=== PATIENT | male | born 1965 | race Caucasian/White ===

== ENCOUNTER 2017-11-07 00:40 | Outpatient (CLI) | payer BC, SELFPAY ==
--- NOTE | 2017-11-07 07:27 | DI.US_ITS ---
SYMPTOM/DIAGNOSIS: LT TESTICLE PAIN THAT RADIATES UP TO LEFT PELVIS N50.812 TESTICULAR ULTRASOUND: The testicles are normal in size and echogenicity and show normal blood flow. There is no evidence of mass or torsion. The epididymides show normal blood flow. There are bilateral epididymal head cysts. The largest on the right measures 11 mm. The largest on the left measures 14 mm. There is no evidence of hydrocele or varicocele. IMPRESSION: Bilateral epididymal head cysts, left greater than right.
== END 2017-11-07 01:00 ==
PROVIDERS: PCP Emergency Medicine; Visit Provider Nurse Practitioner Gerontology
DX: N50.812 Left testicular pain (principal); N50.3 Cyst of epididymis
CPT/HCPCS: 76870

== ENCOUNTER 2018-04-02 18:21 | Emergency (ER) | payer BC, SELFPAY ==
[2018-04-02 18:51] VITALS: BP 116/72; PULSE 98; RESP 18; TEMP 37.5; O2SAT 94
[2018-04-02] MEDS: Naproxen 250 MG TAB 500 MG PO (19:10)
--- NOTE | 2018-04-02 20:03 | W.ED.GENAD ---
Discharge Plan Disposition Patient Disposition: HOME Condition: Good Discharge Details Chief Complaint: RespSymp Clinical Impression: Influenza A, Strep pharyngitis Reason For Visit: ? flu Primary Care Provider: Ajith Baer ED Provider: Edenilson Julian Home Meds and New Rx's Prescriptions: New amoxicillin 500 mg capsule 500 mg PO QID 7 Days Qty: 28 RF: 0 No Action naproxen sodium [Aleve] 220 MG tablet 220 mg PO daily prn RF: 0 magnesium oxide 400 MG tablet 400 mg PO HS RF: 0 Discharge Instructions Instructions: Pharyngitis (ED), Influenza (ED) Additional Instructions: Please take the antibiotic as directed. Please eat yogurts and high-fiber foods to avoid any diarrhea. Please continue to take Tylenol and Motrin for any fever or aches. If you notice any worsening of your symptoms, or any new symptoms such as vomiting, diarrhea, fever, chills, shortness of breath, chest pain, numbness, weakness, or fainting , please return immediately to the emergency department for reevaluation. Please follow up with your primary care provider as soon as possible for reassessment and reevaluation. As always, it was a pleasure participating in your medical care today. Referrals: Ajith Baer, [Primary Care Provider] - Medical Decision Making This is a very pleasant 52-year-old male who presents with signs and symptoms concerning for an flu. The patient has had mild fever, sore throat, myalgias, and mild headache for the last 3 days. He has not been eating but has been drinking. His pain is slightly improved with Tylenol and Motrin. Physical exam demonstrates no concerning red flags of severe neck pain or stiffness, no signs of meningitis. Lungs are clear, vital signs are reassuring. Mild erythema the posterior oropharynx. Strep test is positive for evidence of strep, and influenza is also positive. With the patient's 3 days of symptoms that he is not a candidate for Tamiflu. We will give amoxicillin, the first dose here, for his strep. Recommend continued fluids, Tylenol, Motrin, and prompt return for worsening of his symptoms. I have extensively reviewed the treatment plan and discharge instructions with the patient and their family. I have addressed all patient concerns at this time. The patient and family was made aware of what symptoms to monitor for that would warrant a return to the emergency department. Discussed the plan with the patient and family, they demonstrate verbal understanding and agreement with our assessment and plan at this time. HPI General Date/Time Provider Initiated Documentation: 04/02/18 19:03. HPI Narrative: This is a pleasant 52-year-old male with no significant past medical history who presents today for evaluation of malaise. The patient states that for the last 3 days he has had a fever with a T-max of 103, and flulike symptoms of sore throat, headache, myalgias, notable fatigue. He has not been eating but he has been drinking regularly. He denies any abdominal pain, chest pain, or significant shortness of breath. He does admit to mild cough that is nonproductive. He denies any hemoptysis, hematemesis, diarrhea or recent antibiotic use. 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 He denies any other complaints at this time. He has not gotten his flu shot. He denies any IV or illicit drug use, pertinent family history recent surgeries. Related Data Home Medications Medication Instructions Recorded Confirmed naproxen sodium [Aleve] 220 mg PO daily prn 07/11/14 04/02/18 magnesium oxide 400 mg PO HS 08/24/16 04/02/18 amoxicillin 500 mg PO QID 7 Days #28 cap 04/02/18 Previous Rx's Medication Instructions Recorded amoxicillin 500 mg PO QID 7 Days #28 cap 04/02/18 Allergies Allergy/AdvReac Type Severity Reaction Status Date / Time ibuprofen Allergy Intermediate itchy,hives Verified 11/08/17 09:10 latex Allergy Intermediate itching/bum Verified 11/08/17 09:10 ps General Stated Complaint: RespSymp GULSHAN: 3 Review of Systems Review of Systems All systems reviewed & are unremarkable except as noted in HPI and below PFSH Social History Smoking/Tobacco Use Status: Never Exam Narrative Exam Narrative: 1.Const: Well-nourished, Well-developed, appearing stated age 2.Eyes: PERRL, no conjunctival injection, and symmetrical lids. 3.ENT: Atraumatic external nose and ears. Moist MM. Neck: Symmetric, trachea midline, No thyromegaly. Patient demonstrates good movement of cervical neck. There is no nuchal rigidity, no nuchal tenderness. Patient is able to flex the neck without any difficulty or significant pain. Negative Kernig's and Brudzinski sign. Mild erythema in the posterior oropharynx. No significant tonsillar exudates or tonsillar enlargement. No evidence of otitis media or externa. 4.CVS: +S1/S2, No murmurs or gallops. Peripheral pulses 2+ and equal in all extremities. Brisk capillary refill in all extremities. 5.RESP: Unlabored respiratory effort. Clear to auscultation bilaterally. No wheezes rales or rhonchi 6.GI: Soft, Nontender/Nondistended, No hepatosplenomegaly. No guarding or rebound. 7.MSK: Normocephalic/Atraumatic, Extremities w/o deformity or ttp No cyanosis or clubbing, Normal movement of all extremities 8.Skin: Warm, Dry. No rashes or lesions. 9.Neuro: flaking roll operator II-XII grossly intact. Sensation grossly intact, no focal neurologic deficits. 10.Psych: (AAO) x3. Appropriate mood and affect Course Vital Signs Temperature 37.5 C 04/02/18 18:51 Pulse 98 H 04/02/18 18:51 Respiratory Rate 18 04/02/18 18:51 Blood Pressure 116/72 04/02/18 18:51 Pulse Oximetry 94 L 04/02/18 18:51 Temperature 37.5 C 04/02/18 18:51 Temperature Source Temporal Artery Scan 04/02/18 18:51 Pulse 98 H 04/02/18 18:51 Respiratory Rate 18 04/02/18 18:51 Respiratory Effort 04/02/18 18:54 Blood Pressure 116/72 04/02/18 18:51 Blood Pressure Position Sitting 04/02/18 18:51 Pulse Oximetry 94 L 04/02/18 18:51 Oxygen Delivery Method Room Air 04/02/18 18:51 Oxygen Flow Rate 0 04/02/18 18:51 Pain Level 8 04/02/18 19:10 Lab/Test Results Lab/Test Results: 04/02/18 19:10 Nasopharynx Influenza Types A,B Antigen - Final POC Strep Test-JENNIFER(Rapid) Start: 04/02/18 19:03 Freq: .Rapid Strep Test Status: Active Protocol: Document 04/02/18 19:55 (Rec: 04/02/18 19:55 [email or web address]) Strep test-JENNIFER(Rapid)-POC POC-Strep test-JENNIFER (Rapid) Positive POC-Strep test-JENNIFER (Rapid) Positive
[2018-04-02] MEDS: Amoxicillin 500 MG CAP (20:10)
== END 2018-04-02 20:13 | disposition home or self-care (01) ==
PROVIDERS: Emergency Provider Student in an Organized Health Care Education/Training Program; PCP Emergency Medicine
DX: J10.1 Influenza due to other identified influenza virus with other respiratory manifestations (principal); J02.0 Streptococcal pharyngitis
CPT/HCPCS: 87449; 87880; 99283

== ENCOUNTER 2018-07-30 14:00 | Emergency (ER) | payer BC, SELFPAY ==
[2018-07-30 14:12] VITALS: BP 131/81; PULSE 64; RESP 20; TEMP 36.9; O2SAT 98
--- NOTE | 2018-07-30 14:30 | W.ED.GENAD ---
Discharge Plan Disposition Patient Disposition: HOME Condition: Good Discharge Details Chief Complaint: RashLesion Clinical Impression: Insect bite Primary Care Provider: Ajith Baer ED Provider: Edenilson Julian Home Meds and New Rx's Prescriptions: No Action naproxen sodium [Aleve] 220 MG tablet 220 mg PO daily prn RF: 0 magnesium oxide 400 MG tablet 400 mg PO HS RF: 0 Discharge Instructions Instructions: Insect Bite or Sting (ED) Additional Instructions: Your lesion does not appear typical of a tick bite. However you were in an endemic area, and since you had multiple ticks on your recently there is concern that certainly may be a tick bite component. If you so choose to, please take the doxycycline 1 time as directed. Roughly 4 to 6 hours later please take some yogurt to prevent any diarrhea. If you notice any worsening of your symptoms, or any new symptoms such as vomiting, diarrhea, fever, chills, shortness of breath, chest pain, numbness, weakness, or fainting , please return immediately to the emergency department for reevaluation. Please follow up with your primary care provider as soon as possible for reassessment and reevaluation. As always, it was a pleasure participating in your medical care today. Referrals: Ajith Baer, [Primary Care Provider] - Medical Decision Making This is a pleasant 53-year-old male who presents with concern for a lesion behind his right posterior ear. Exam demonstrates a small erythematous lesion. No evidence of abscess. No evidence of erythema migrans. It may have been from a tick, or another arthropod bite. Patient does have mitral valve regurgitation. We discussed risks and benefits of prophylactic doxycycline for potential tick bite as he does have multiple risk factors of being covered and takes recently through his outdoor escapades. Patient will be given 200 mg of doxycycline to take at home when he has eaten some food. We discussed the importance of yogurt with live culture a few hours afterwards to prevent any diarrhea. Patient has no other complaints at this time. Discussed red flags which to return. I have extensively reviewed the treatment plan and discharge instructions with the patient. I have addressed all patient concerns at this time. The patient was made aware of what symptoms to monitor for that would warrant a return to the emergency department. Discussed the plan with the patient, they demonstrate verbal understanding and agreement with our assessment and plan at this time. HPI General Date/Time Provider Initiated Documentation: 07/30/18 14:07. HPI Narrative: This is a 53-year-old male with a past medical history of mitral valve regurgitation, and no other significant medical problem who presents today for evaluation of a bite behind his right ear. [place], has noticed multiple ticks that he is pulled off of them. He does not recall pulling any takeoff of his right posterior ear, however he did note a lesion in his right posterior ear, and his was concerned that it may have been a tick bite. He denies any systemic symptoms of fever, chills, arthralgias, or other complaints. He denies any other modifying factors. Related Data Home Medications Medication Instructions Recorded Confirmed naproxen sodium [Aleve] 220 mg PO daily prn 07/11/14 07/30/18 magnesium oxide 400 mg PO HS 08/24/16 07/30/18 Allergies Allergy/AdvReac Type Severity Reaction Status Date / Time ibuprofen Allergy Intermediate itchy,hives Verified 07/30/18 14:13 latex Allergy Intermediate itching/bum Verified 07/30/18 14:13 ps General Stated Complaint: RashLesion GULSHAN: 4 Review of Systems Review of Systems All systems reviewed & are unremarkable except as noted in HPI and below PFSH Social History Smoking/Tobacco Use Status: Never Alcohol Intake: current Alcohol Intake frequency: 0-2 drinks per day Drug use: Never Substance use type: does not use Do you feel safe at home: Yes Do you feel safe in your relationship?: Yes Exam Narrative Exam Narrative: 1.Const: Well-nourished, Well-developed, appearing stated age 2.Eyes: PERRL, no conjunctival injection, and symmetrical lids. 3.ENT: Atraumatic external nose and ears. Moist MM. Neck: Symmetric, trachea midline, No thyromegaly. 4.CVS: +S1/S2, No murmurs or gallops. Peripheral pulses 2+ and equal in all extremities. Brisk capillary refill in all extremities. 5.RESP: Unlabored respiratory effort. Clear to auscultation bilaterally. No wheezes rales or rhonchi 6.GI: Soft, Nontender/Nondistended, No hepatosplenomegaly. No guarding or rebound. 7.MSK: Normocephalic/Atraumatic, Extremities w/o deformity or ttp No cyanosis or clubbing, Normal movement of all extremities 8.Skin: Warm, Dry. Small erythematous lesion behind the patient's right ear. Does appear to resemble an arthropod bite. No evidence of tick, or retained head or lesion. No other significant abnormalities. No erythema migrans 9.Neuro: clinical reviewer II-XII grossly intact. Sensation grossly intact, no focal neurologic deficits. 10.Psych: (AAO) x3. Appropriate mood and affect Course Vital Signs Temperature 36.9 C 07/30/18 14:12 Pulse 64 07/30/18 14:12 Respiratory Rate 20 07/30/18 14:12 Blood Pressure 131/81 07/30/18 14:12 Pulse Oximetry 98 07/30/18 14:12 Temperature 36.9 C 07/30/18 14:12 Temperature Source Temporal Artery Scan 07/30/18 14:12 Pulse 64 07/30/18 14:12 Respiratory Rate 20 07/30/18 14:12 Respiratory Effort Non-Labored 07/30/18 14:12 Blood Pressure 131/81 07/30/18 14:12 Blood Pressure Position Sitting 07/30/18 14:12 Pulse Oximetry 98 07/30/18 14:12 Oxygen Delivery Method Room Air 07/30/18 14:12 Oxygen Flow Rate 0 07/30/18 14:12 Pain Level 0 07/30/18 14:12
[2018-07-30] MEDS: Doxycycline Hyclate 100 MG CAP 200 MG PO (14:45)
[2018-07-30 17:37] VITALS: BP 131/81; PULSE 64; RESP 20; TEMP 36.9; O2SAT 98
== END 2018-07-30 14:50 | disposition home or self-care (01) ==
PROVIDERS: Emergency Provider Student in an Organized Health Care Education/Training Program; PCP Emergency Medicine
DX: S00.96XA Insect bite (nonvenomous) of unspecified part of head, initial encounter (principal); W57.XXXA Bitten or stung by nonvenomous insect and other nonvenomous arthropods, initial encounter
CPT/HCPCS: 99283

== ENCOUNTER 2019-04-02 01:59 | Outpatient (CLI) | payer BC, SELFPAY ==
--- NOTE | 2019-04-02 13:50 | DI.US_ITS ---
APPROVED REPORT EXAM: Comprehensive 2D, Doppler, and color-flow Echocardiogram Patient Location: Out-Patient Sound Installation Worker: Maile Hooper RDCS (AE) Rhythm: NSR Indications: history of bicuspid aortic valve. dyspnea on exertion. R06.09 other forms of dyspnea Conclusion Left Ventricle : The left ventricle is normal size. The left ventricular systolic function is normal. The left ventricular ejection fraction is within the normal range. There is top normal left ventricu lar wall thickness. There is normal LV segmental wall motion. The left ventricular diastolic function is normal. LVEF is estimated to be 65%. Right Ventricle : The right ventricle is generous in size. The right ventricular systolic function ap pears normal. Atria : The left atrium size is normal. Right atrium is mildly dilated. Aortic Valve : Aortic valve is bicuspid. Aortic valve has calcified nodular thickening. Eccentric mod erate aortic regurgitation. Mild aortic stenosis. Mitral Valve : Mitral valve leaflets are mildly thickened. Mild mitral regurgitation. No evidence of mitral valve stenosis. Tricuspid Valve : Tricuspid valve leaflets are thickened but open well. Mild tricuspid regurgitation. Great Vessels : Aortic root is mildly dilated. The ascending aorta is mildly dilated (3.7cm). The IVC is mildly dilated, but collapses >50% with inspiration. Estimated RVSP is 18-26 mmHg. There are no echocardiographic images available for comparison. Wall motion Left Ventricle The left ventricle is normal size. The left ventricular systolic function is normal. The left ventric ular ejection fraction is within the normal range. There is top normal left ventricular wall thicknes s. There is normal LV segmental wall motion. The left ventricular diastolic function is normal. LVEF is estimated to be 65%. Right Ventricle The right ventricle is generous in size. The right ventricular systolic function appears normal. Atria The left atrium size is normal. Right atrium is mildly dilated. Aortic Valve Aortic valve is bicuspid. Aortic valve has calcified nodular thickening. Mild aortic stenosis. Eccent gwendolyn moderate aortic regurgitation. Mitral Valve Mitral valve leaflets are mildly thickened. No evidence of mitral valve stenosis. Mild mitral regurgi tation. Tricuspid Valve Tricuspid valve leaflets are thickened but open well. Mild tricuspid regurgitation. Pulmonic Valve Pulmonic valve is not well visualized. Great Vessels Aortic root is mildly dilated. The ascending aorta is mildly dilated (3.7cm). The IVC is mildly dilat ed, but collapses >50% with inspiration. Estimated RVSP is 18-26 mmHg. Pericardium There is no pericardial effusion. 2D Dimensions IVSd 1.10 cm M: 0.6-1.2 LV EDV A2C 103.9 mL PWd 1.10 cm M: 0.6 - 1.2 LV EDV A4C 106.7 mL LVDd 4.90 cm M: 4.2 - 5.8 LA Volume Index Biplane 24.0 mL/m2 LVDs 3.65 cm M: 2.5 - 4.0 LA Area A4C 14.30 cm2 Aortic Root 3.60 cm M: 3.1 - 3.7 LA Area A2C 16.27 cm2 RVID Base (AP4) 3.96 cm (M/F) 2.5-4.1 EF AP4 66.1 % RA Area A4C 21.04 cm2 EF AP2 66.9 % LVOT 2.45 cm (M/F) 1.5-2.5 EF BP 66.5 % Ascending Aorta 3.69 cm M: 2.6 - 3.4 IVC 2.26 cm LVEF (Teich) 50.2 % TAPSE 2.52 cm (M/F) <1.7 LVEF ([facility]) 66.55 % M: 52 - 72 LV Volume 87.30 mL M: 62 - 150 LV Volume Index 46.68 mL/m2 M: 34 - 74 FS 25.55 % LV Diastology MV E' medial 0.073 (>0.07 m/s) E/A Ratio 1.2 LV E/e MED 9.85 (<14) TR Peak Velocity 2.12 m/s MV E' lateral 0.080 (>0.1 m/s) LV E/e LAT 8.95 (<14) LA vol/ BSA A2C s A-L 20.2 mL/m2 LA vol/ BSA A4C s A-L 21.1 mL/m2 Aortic Valve LVOT Area 4.89 cm2 AoV Area Vmax 1.87 cm2 LVOT Vmax 1.04 m/s AoV Area/ BSA (Vmax) 1.00 cm2/m2 LVOT Mean Sean. 0.76 m/s CONNIE Mean Sean. 1.88 cm2 LVOT Peak Gr. 4.3 mmHg CONNIE Mean Sean. Index 1.00 cm2/m2 LVOT Mean Gr. 2.6 mmHg LVOT VTI 0.220 m AoV Vmax 2.72 (0.5-1.3 m/s) AoV Mean Sean. 1.98 m/s AoV Peak Grad 29.5 mmHg LVOT SV 107.67 mL AoV Mean Grad 17.6 (<5 mmHg) AoV VTI 0.583 (0.18-0.25 m) VTI Ratio 0.41 AoV Area VTI 1.85 (2.5-4.5 cm2) AoV Area/ BSA (VTI) 0.99 cm/m2 Mitral Valve MV E Max Sean. 0.72 (0.4-1.3 m/s) MVA VTI 6.43 (4.0-6.0 cm2) MV A Velocity 0.60 (0.4-1.3 m/s) MV Regurg Volume 15.53 mL E/A Ratio 1.15 MV RF 12.61 % MV Decel. Time 205 (160-240 msec) RVOT Peak Gr. 2.38 mmHg MV PHT 59 msec RVOT Mean Gr. 1.45 mmHg MVA PHT 3.70 cm2 PV Peak Velocity 0.83 (0.5-1.5 m/s) RVOT Peak Sean. 0.77 m/s RVOT VTI 0.167 m Tricuspid Valve TR P. Gradient 17.9 mmHg TV Regurg Vmax 2.12 m/s RAP Estimate 8.00 mmHg RVSP 26.0 mmHg
== END 2019-04-02 02:19 ==
PROVIDERS: PCP Emergency Medicine; Visit Provider Internal Medicine
DX: R06.09 Other forms of dyspnea (principal); R01.1 Cardiac murmur, unspecified; I35.2 Nonrheumatic aortic (valve) stenosis with insufficiency; I77.819 Aortic ectasia, unspecified site
CPT/HCPCS: 93306

== ENCOUNTER 2019-04-16 14:03 | Outpatient (CLI) | payer BC, SELFPAY ==
[2019-04-16 15:07] LABS: Abs Immature Grans 0.01 k/cumm (0.0-0.09); Absolute Basophil Count 0.02 k/cumm (0.0-0.2); Absolute Eosinophil Count 0.12 k/cumm (0.0-0.7); Absolute Lymphocyte Count 1.82 k/cumm (1.2-3.4); Absolute Monocyte Count 0.57 k/cumm (0.11-0.7); Absolute Neutrophil Count 4.01 k/cumm (1.2-6.7); Basophils % 0.3; Eosinophils % 1.8; HCT 45.3 % (40.0-50.0); HGB 16.7 g/dL (13.5-17.5); Immature Grans % 0.2 %; Lymphocytes % 27.8; Mean Corp. HGB Concentration 36.9 g/dL (32.0-36.0); Mean Corpuscular Hemoglobin 32.4 pg (27.0-33.0); Mean Platelet Volume 10.2 fL (8.0-11.0); Monocytes % 8.7; Neutrophils % 61.2; Platelet Count 226 x1000/uL (130-400); RBC 5.15 m/cumm (4.50-6.00); RBC Distribution Width 11.6 % (11.8-14.1); White Blood Cell Count 6.55 k/cumm (4.4-10.8)
[2019-04-16 15:14] LABS: ALT 23 U/L (16-63); AST 20 U/L (15-37); Albumin 4.2 g/dL (3.4-5.0); Alkaline Phosphatase 54 U/L (46-116); Anion Gap 6.9 mmol/L (3-11); BUN 15 mg/dL (7-18); CO2 31.1 mmol/L (21.0-32.0); CREATININE 1.01 mg/dL (0.70-1.30); Calcium 9.1 mg/dL (8.5-10.1); Chloride 104 mmol/L (98-107); Glucose 98 mg/dL (74-106); Potassium 4.5 mmol/L (3.5-5.1); Sodium 142 mmol/L (136-145); Total Protein 7.2 g/dL (6.4-8.2)
[2019-04-16 15:24] LABS: Diff Comment Diff Reviewed
[2019-04-17 10:04] LABS: PSA, Screening 0.4 ng/mL (0.0-3.5)
== END 2019-04-16 14:23 ==
PROVIDERS: PCP Internal Medicine; Visit Provider Nurse Practitioner Gerontology
DX: N40.1 Benign prostatic hyperplasia with lower urinary tract symptoms (principal); R50.9 Fever, unspecified; Z77.011 Contact with and (suspected) exposure to lead; Z12.5 Encounter for screening for malignant neoplasm of prostate
CPT/HCPCS: 36415; 80053; 84153; 83655; 85025

== ENCOUNTER 2019-07-17 08:31 | Outpatient (CLI) | payer BC, SELFPAY | END 2019-07-17 08:51 | PROVIDERS: PCP Nurse Practitioner; Visit Provider Internal Medicine Cardiovascular Disease | DX: R00.2 Palpitations (principal) | CPT/HCPCS: 93225 ==

== ENCOUNTER 2019-07-19 10:10 | Outpatient (CLI) | payer BC, SELFPAY ==
--- NOTE | 2019-07-19 11:27 | W.HOLTRPT ---
Date of service: 07/19/19 Time of Service: 11:27 Holter Monitor Report Holter Monitor Note: This is a 24-hour Holter monitor ordered for indication of palpitations. ?Patient was in normal sinus rhythm for the majority of the recording (mean heart rate 81 bpm) ?There were 6 episodes of supraventricular tachycardia with the longest lasting 13 beats. There were rare premature atrial contractions. ?There were 0 episodes of ventricular tachycardia and one 4 beat run rated idioventricular rhythm. ?There were rare premature ventricular contractions. ?There were no episodes of atrial fibrillation no pauses greater than 3 seconds no evidence of high degree heart block. ?Patient diary events were associated with sinus rhythm, PACs, short run of SVT, and couplets.
== END 2019-07-19 10:30 ==
PROVIDERS: PCP Nurse Practitioner; Visit Provider Nurse Practitioner
DX: R00.2 Palpitations (principal)
CPT/HCPCS: 93226

== ENCOUNTER 2019-11-19 00:08 | Outpatient (CLI) | payer BC, SELFPAY ==
--- NOTE | 2019-11-19 08:00 | ETT_ITS ---
APPROVED REPORT Exam: Exercise Treadmill Patient Location: Out-Patient Room/Bed: Stress Nurse: Neris Villa RN BMI: 24.06 Baseline Rhythm: Sinus Bradycardia Indications: Patient reports a long history of ???skipped beats???. Patient states these ???skipped b eats??? have become more frequent over the last month and a half, ???every 9-10 seconds during the bu lk of the day???. He also reports occasional lightheadedness and denies any other symptoms. Medical History Medical History: Mitral Valve regurgitation (nonrheumatic), Palpitations, Biscuspid Aortic Valve. Cardiac Medications: No cardiac related medications per patient. Allergies: Ibuprofen, Latex. Cardiac Risk Factors: FHX of CAD Previous Cardiac Procedures: None reported per patient. Pretest Chest Pain Characteristics: Occasional Palpitations. Exercise History: Physically active Physical Disabilities: None Lung Sounds: Clear to auscultation Heart Sounds: Regular Stress Test Details Test: Exercise stress testing was performed using a Jamar protocol. Rest Stress HR Resting HR Supine: 58 bpm Max Heart Rate (APMHR): 166 bpm Resting HR Standin bpm Target HR (85% APMHR): 141 bpm Max HR Achieved: 176 bpm % of APMHR: 106 HR response to stress: Normal HR response to stress BP Resting BP Supine: 148/78 mmHg Resting BP Standin/74 mmHg Max BP: 188/60 mmHg BP response to stress: Abnormal hypotensive response to stress. ECG Resting ECG: Sinus Bradycardia Ectopy: Occasional PVC's Comment: Minimal ST Depression in inferior leads, St Elevation in leads V2, V3, V4 at baseline. Stress ECG: Clear, Sinus Rhythm ST Change: Upsloping ST depression Lead(s): V3, V4 Stage: 5 Clinical Reason for Termination: Fatigue Stress Symptoms: Occassional Palpitations reported per Patient. Exercise duration: 16 min6 sec Highest Stage Reached: Stage 6: 5.5 mph at 20% grade. Exercise capacity: 16.4 METs Functional Capacity: Above average capacity Stress ECG Conclusion 1. Resting electrocardiogram showed left ventricular hypertrophy with repolarization abnormality 2. The patient exercised on the Jamar protocol and completed a workload of 16.4 METS. He achieved gr eater than 100% of predicted heart rate for age. Exercise capacity was well above the average 3. Normal heart rate and blood pressure response to exercise 4. Electrocardiographically there was [address] depression noted in leads II, III, aVF at peak exerc ise. This normalized 9 minutes 3 of recovery. This is consistent with myocardial ischemia 5. Ventricular ectopic beats were noted Stress Test Summary STAGE Time (mins) Speed (mph) Grade (%) HR BP SYMPTOMS METS Supine 58 148/78 Standing 79 132/74 1 3 1.7 10 91 136/72 4.6 2 6 2.5 12 108 138/70 7 3 9 3.4 14 125 144/68 10.2 4 12 4.2 16 143 156/62 12.9 5 15 5.0 18 167 17.2 1 min recovery 143 188/60 3 min recovery 101 180/64 6 min recovery 97 152/68 9 min recovery 94 134/72
== END 2019-11-19 00:28 ==
PROVIDERS: PCP Nurse Practitioner; Visit Provider Internal Medicine Cardiovascular Disease
DX: R07.9 Chest pain, unspecified (principal); R42 Dizziness and giddiness; I51.7 Cardiomegaly; I25.9 Chronic ischemic heart disease, unspecified
CPT/HCPCS: 93017

== ENCOUNTER 2020-03-20 01:52 | Outpatient (CLI) | payer BC, SELFPAY ==
[2020-03-20 09:43] LABS: Calculated LDL 74 mg/dL (<100); Cholesterol 142 mg/dL (<200); HDL Cholesterol 53 mg/dL (40-60); Triglyceride 79 mg/dL (<150)
== END 2020-03-20 02:12 ==
PROVIDERS: PCP Nurse Practitioner; Visit Provider Internal Medicine Cardiovascular Disease
DX: R07.9 Chest pain, unspecified (principal)
CPT/HCPCS: 36415; 80061

== ENCOUNTER 2020-12-01 01:02 | Outpatient (CLI) | payer BC, SELFPAY ==
--- NOTE | 2020-12-01 06:15 | DI.US_ITS ---
APPROVED REPORT EXAM: Comprehensive 2D, Doppler, and color-flow Echocardiogram Patient Location: Out-Patient Automatic Cigar Wrapper Tender: Christen Banda RDCS (AE) Indications: Bicuspid aortic valve Other Information Study Quality: Good Conclusion Normal left ventricular wall thickness and chamber size. Estimated ejection fraction is 60 to 65%. Wall motion is normal Normal right ventricular size and systolic function Both atria are normal in size The aortic valve is sclerotic and functionally bicuspid. There is no significant aortic stenosis. T here is mild aortic regurgitation There is no additional significant valvular disease Normal estimated right ventricular systolic pressure Aortic root is normal in size. Ascending aorta is not well visualized Wall motion Left Ventricle The left ventricle is normal size. The left ventricular systolic function is normal. The left ventric ular ejection fraction is within the normal range. There is normal left ventricular wall thickness. T here is normal LV segmental wall motion. There is no ventricular septal defect visualized. LVEF is 60 -65%. Right Ventricle The right ventricle is normal size. The right ventricular systolic function is normal. The RVSP is 25 .6 mmHg. Atria The left atrium size is normal. The right atrium size is normal. The interatrial septum is intact wit h no evidence for an atrial septal defect. Aortic Valve The Aortic valve is sclerotic. Aortic valve is bicuspid. No hemodynamically significant valvular aort ic stenosis. Mild aortic regurgitation. Mitral Valve The mitral valve is normal in structure. No evidence of mitral valve stenosis. Trace to mild mitral r egurgitation. Tricuspid Valve The tricuspid valve is normal in structure. There is no tricuspid valve stenosis. Trace tricuspid reg urgitation. Pulmonic Valve The pulmonary valve is normal in structure. There is no pulmonic valvular stenosis. Mild pulmonic reg urgitation. Great Vessels The aortic root is normal in size. Ascending aorta is not well visualized. Aortic arch is normal in c aliber. IVC is normal in size and collapses >50% with inspiration. Pericardium There is no pericardial effusion. 2D Dimensions IVSD d PLAX 0.91 cm M: 0.6-1.2 LV Vol A2C d MOD 114.5 mL LVPW d PLAX 0.92 cm M: 0.6 - 1.2 LV Vol A4C d MOD 116.7 mL LVID d PLAX 4.70 cm M: 4.2 - 5.8 LA vol/ BSA A2C s A-L 18.3 mL/m2 LVDs 3.20 cm M: 2.5 - 4.0 LA vol/ BSA A4C s A-L 16.2 mL/m2 Ao Root d 3.61 cm M: 3.1 - 3.7 LA Vol/ BSA Biplane s A-L 17.7 mL/m2 RA Area A4C 16.91 cm2 LA Area A4C s MOD 12.48 cm2 RA Vol/ BSA A4C s A-L 29.0 mL/m2 LA Area A2C s MOD 13.65 cm2 LV EF Teichholz 59.8 % LV EF A4C MOD 60.2 % LVEF ([facility]) 63.41 % M: 52 - 72 LV EF A2C MOD 65.0 % LV Volume 90.54 mL M: 62 - 150 LV EF Biplane MOD 63.4 % LV Volume Index 48.15 mL/m2 M: 34 - 74 SV 74.93 mL LV Vol Biplane MOD 118.2 mL SV Index 39.88 mL/m2 FS 31.80 % M-Mode TAPSE 2.79 cm (M/F) >1.7 LV Diastology MV E' medial 0.089 (>0.07 m/s) E/A Ratio 1.4 LV E/e MED 8.60 (<14) MV E Vmax 0.77 (0.4-1.3 m/s) MV E' lateral 0.082 (>0.1 m/s) MV A Vmax 0.55 (0.4-1.3 m/s) LV E/e LAT 9.35 (<14) MV E/A Ratio 1.34 MV E/E' medial 8.61 MV E/E' lateral 9.38 Aortic Valve LVOT Area 3.57 cm2 AoV Area Vmax 1.27 cm2 LVOT Vmax 0.83 m/s AoV Area/ BSA (Vmax) 0.67 cm2/m2 LVOT Mean Sean. 0.59 m/s CONNIE Mean Sean. 1.16 cm2 LVOT Peak Grad 2.8 mmHg CONNIE Mean Sean. Index 0.62 cm2/m2 LVOT Mean Grad 1.6 mmHg AR DT 2846 msec LVOT VTI 0.145 m AR PHT 825 msec LVOT Diam s 2.10 cm AoV Vmax 2.35 m/s Velocity Ratio 0.35 AoV Mean Sean. 1.82 m/s AoV Peak Grad 22.2 mmHg LVOT SV 51.78 mL AoV Mean Grad 14.5 mmHg AoV VTI 0.540 m AoV Area VTI 0.96 cm2 AoV Area/ BSA (VTI) 0.51 cm/m2 Mitral Valve MV DT 247 (160-240 msec) MV PHT 72 msec MV Area PHT 3.07 cm2 MV VTI 0.201 m MV Area VTI 2.58 (4.0-6.0 cm2) Pulmonary Valve PV Vmax 0.77 (0.5-1.5 m/s) RVOT Peak Gr. 2.32 mmHg PV Peak Grad 2.4 mmHg RVOT Mean Gr. 1.20 mmHg PV Mean Grad 1.3 mmHg RVOT VTI 0.162 m PV VTI 0.156 m RVOT Vmax 0.76 m/s Tricuspid Valve TR Peak Grad 22.6 mmHg TR Vmax 2.38 m/s RA Pressure 3.00 mmHg RVSP (TR) 25.6 mmHg
== END 2020-12-01 01:22 ==
PROVIDERS: PCP Nurse Practitioner; Visit Provider Internal Medicine Cardiovascular Disease
DX: Q23.1 Congenital insufficiency of aortic valve (principal); I35.1 Nonrheumatic aortic (valve) insufficiency
CPT/HCPCS: 93306

== ENCOUNTER 2021-05-05 04:29 | Outpatient (CLI) | payer BC, SELFPAY ==
[2021-05-05 08:54] LABS: Calculated LDL 82 mg/dL (<100); Cholesterol 148 mg/dL (<200); HDL Cholesterol 49 mg/dL (40-60); Triglyceride 88 mg/dL (<150)
== END 2021-05-05 04:30 | disposition home or self-care (01) ==
LOC: LBO 04:29
PROVIDERS: PCP Nurse Practitioner; Visit Provider Nurse Practitioner
DX: E78.5 Hyperlipidemia, unspecified (principal)
CPT/HCPCS: 36415; 80061

== ENCOUNTER 2022-01-24 13:41 | Outpatient (CLI) | payer BC, SELFPAY ==
[2022-01-24 22:55] LABS: PSA, Screening 0.4 ng/mL (<=3.5)
== END 2022-01-24 13:42 | disposition home or self-care (01) ==
LOC: LBO 13:42
PROVIDERS: PCP Nurse Practitioner Family; Visit Provider Nurse Practitioner Family
DX: N40.0 Benign prostatic hyperplasia without lower urinary tract symptoms (principal); Z12.5 Encounter for screening for malignant neoplasm of prostate
CPT/HCPCS: 36415; 84153

== ENCOUNTER 2022-07-01 00:34 | Outpatient (CLI) | payer BC, SELFPAY ==
--- NOTE | 2022-07-01 07:30 | DI.US_ITS ---
APPROVED REPORT EXAM: Comprehensive 2D, Doppler, and color-flow Echocardiogram Patient Location: Out-Patient Lap Checker: Christen Banda RDCS (AE) Indications: Palpitations, Mitral valve regurgitation Other Information Study Quality: Good Conclusion Normal left ventricular wall thickness and chamber size. Ejection fraction is 60%. Wall motion is n ormal Normal right ventricular size and systolic function Both atria are normal in size Aortic valve is calcified. There is mild to moderate aortic stenosis. Peak gradient is 31, mean 21 mmHg. Calculated aortic valve area is 1.3 cm??. There is mild eccentric aortic regurgitation Dilated ascending aorta measuring 3.9 cm Wall motion Left Ventricle The left ventricle is normal size. The left ventricular systolic function is normal. The left ventric ular ejection fraction is within the normal range. There is normal left ventricular wall thickness. T here is normal LV segmental wall motion. There is no ventricular septal defect visualized. LVEF is 60 %. Right Ventricle The right ventricle is normal size. The right ventricular systolic function is normal. Atria The left atrium size is normal. The right atrium size is normal. The interatrial septum is intact wit h no evidence for an atrial septal defect. Aortic Valve Aortic valve is calcified. History of a bicuspid aortic valve Mild to moderate aortic stenosis. Peak aortic valve gradient is 30.8mmHg. Highest mean aortic valve gradient is 20.1_mmHg. Calculated CONNIE by the continuity equation is 1.30cm2. Mild aortic regurgitation. Mitral Valve The mitral valve is normal in structure. No evidence of mitral valve stenosis. Trace to mild mitral r egurgitation. Tricuspid Valve The tricuspid valve is normal in structure. There is no tricuspid valve stenosis. Trace tricuspid reg urgitation. Unable to assess PA pressure. Pulmonic Valve The pulmonary valve is normal in structure. There is no pulmonic valvular stenosis. There is no pulmo christina valvular regurgitation. Great Vessels The aortic root is normal in size. The ascending aorta is mildly dilated. Aortic arch is normal in ca liber. IVC is normal in size and collapses >50% with inspiration. Pericardium There is no pericardial effusion. 2D Dimensions IVSD d PLAX 0.91 cm M: 0.6-1.2 LV Vol A2C d MOD 130.4 mL LVPW d PLAX 0.93 cm M: 0.6 - 1.2 LV Vol A4C d MOD 99.6 mL LVID d PLAX 4.70 cm M: 4.2 - 5.8 LA vol/ BSA A2C s A-L 24.4 mL/m2 LVDs 3.25 cm M: 2.5 - 4.0 LA vol/ BSA A4C s A-L 22.9 mL/m2 Ao Root d 3.66 cm M: 3.1 - 3.7 LA Vol/ BSA Biplane s A-L 25.4 mL/m2 RA Area A4C 16.43 cm2 LA Area A4C s MOD 16.62 cm2 RA Vol/ BSA A4C s A-L 24.7 mL/m2 LA Area A2C s MOD 16.00 cm2 Ao Asc Diam d 3.90 cm M: 2.6 - 3.4 LV EF A4C MOD 60.1 % LV EF Teichholz 57.9 % LV EF A2C MOD 60.9 % LVEF ([facility]) 61.29 % M: 52 - 72 LV EF Biplane MOD 61.3 % LV Volume 90.37 mL M: 62 - 150 SV 72.49 mL LV Volume Index 47.56 mL/m2 M: 34 - 74 SV Index 38.28 mL/m2 LV Vol Biplane MOD 118.3 mL FS 30.45 % M-Mode TAPSE 3.21 cm (M/F) >1.7 LV Diastology MV E' medial 0.078 (>0.07 m/s) E/A Ratio 1.4 LV E/e MED 9.90 (<14) MV E Vmax 0.78 (0.4-1.3 m/s) MV E' lateral 0.085 (>0.1 m/s) MV A Vmax 0.55 (0.4-1.3 m/s) LV E/e LAT 9.10 (<14) MV E/A Ratio 1.34 MV E/E' medial 9.92 MV E/E' lateral 9.12 Aortic Valve LVOT Area 3.73 cm2 AoV Area Vmax 1.30 cm2 LVOT Vmax 0.96 m/s AoV Area/ BSA (Vmax) 0.68 cm2/m2 LVOT Mean Sean. 0.70 m/s CONNIE Mean Sean. 1.21 cm2 LVOT Peak Grad 3.7 mmHg CONNIE Mean Sean. Index 0.64 cm2/m2 LVOT Mean Grad 2.1 mmHg LVOT VTI 0.214 m LVOT Diam s 2.15 cm AoV Vmax 2.77 m/s Velocity Ratio 0.35 AoV Mean Sean. 2.16 m/s AoV Peak Grad 30.8 mmHg LVOT SV 79.96 mL AoV Mean Grad 20.1 mmHg AoV VTI 0.644 m AoV Area VTI 1.24 cm2 AoV Area/ BSA (VTI) 0.66 cm/m2 Mitral Valve MV DT 180 (160-240 msec) MV PHT 52 msec MV Area PHT 4.22 cm2 MV VTI 0.254 m MV Area VTI 3.15 (4.0-6.0 cm2) Pulmonary Valve PV Vmax 0.90 (0.5-1.5 m/s) RVOT Peak Gr. 1.82 mmHg PV Peak Grad 3.3 mmHg RVOT Mean Gr. 0.85 mmHg PV Mean Grad 2.1 mmHg RVOT VTI 0.167 m PV VTI 0.236 m RVOT Vmax 0.68 m/s
== END 2022-07-01 00:54 ==
LOC: DI 00:34
PROVIDERS: PCP Nurse Practitioner Family; Visit Provider Internal Medicine Cardiovascular Disease
DX: I34.0 Nonrheumatic mitral (valve) insufficiency (principal); R00.2 Palpitations
CPT/HCPCS: 93306

== ENCOUNTER 2022-07-18 08:58 | Outpatient (CLI) | payer BC, SELFPAY ==
--- NOTE | 2022-07-18 08:45 | RT.EKG_ITS ---
APPROVED REPORT Exam: Resting ECG Reason for Exam: palpitations Patient Location: O HR:76 bpm ECG Measurements Heart Rate 76 AXIS AK 149 P 63 QRSd 100 QRS 78 QT 365 T -13 QTc 411 Conclusion Sinus rhythm...normal P axis, V-rate 50- 99 Probable left atrial enlargement...P >50mS, <-0.10mV V1 RSR' in V1 or V2, normal variant
== END 2022-07-18 08:59 | disposition home or self-care (01) ==
LOC: DI.CARD 08:59
PROVIDERS: PCP Nurse Practitioner Family; Visit Provider Internal Medicine Cardiovascular Disease
DX: R00.2 Palpitations (principal); Z87.74 Personal history of (corrected) congenital malformations of heart and circulatory system
CPT/HCPCS: 93010

== ENCOUNTER 2022-09-19 14:44 | Observation (INO) | payer BC, SELFPAY ==
[2022-09-19 14:49] VITALS: BP 130/77; PULSE 87; RESP 20; TEMP 37; O2SAT 94
[2022-09-19 15:43] LABS: Abs Immature Grans 0.03 10^3/uL (0.0-0.06); Absolute Basophil Count 0.06 10^3/uL (0.0-0.2); Absolute Eosinophil Count 0.49 10^3/uL (0.0-0.7); Absolute Lymphocyte Count 1.47 10^3/uL (1.2-3.4); Absolute Monocyte Count 0.52 10^3/uL (0.1-0.8); Absolute Neutrophil Count 4.35 10^3/uL (1.2-6.7); Basophils % 0.9; Eosinophils % 7.1; HCT 41.6 % (40.0-50.0); HGB 15.4 g/dL (13.5-17.5); Immature Grans % 0.4; Lymphocytes % 21.2; MCH 32.5 pg (27.0-33.0); MCV 88 fL (80-95); MPV 9.3 fL (8.0-11.0); Monocytes % 7.5; Neutrophils % 62.9; Platelet Count 214 10^3/uL (130-400); RBC 4.74 10^6/uL (4.36-5.78); RDW 10.8 % (11.8-14.1); RDW-SD 34.7 fL; WBC 6.92 10^3/uL (4.4-10.8)
[2022-09-19] MEDS: LORazepam 2 MG/ML VIAL 0.5 MG IVP (15:53)
[2022-09-19 15:57] LABS: ALT 26 U/L (16-63); AST 19 U/L (15-37); Albumin 3.3 g/dL (3.4-5.0); Alkaline Phosphatase 67 U/L (46-116); Anion Gap 6.4 mmol/L (3-11); BUN 15 mg/dL (7-18); Bilirubin, Total 0.5 mg/dL (0.2-1.0); CO2 28.6 mmol/L (21.0-32.0); CREATININE 0.9 mg/dL (0.70-1.30); Calcium 8.1 mg/dL (8.5-10.1); Chloride 108 mmol/L (98-107); Estimated GFR 99.62 (mL/min/1.73m2); Glucose 98 mg/dL (74-106); Potassium 3.5 mmol/L (3.5-5.1); Sodium 143 mmol/L (136-145); Total Protein 6.2 g/dL (6.4-8.2)
[2022-09-19 16:04] LABS: PTT Activated 29.5 sec (21.5-31.9); Prothrombin Time 9.9 sec (9.3-11.0)
--- NOTE | 2022-09-19 16:45 | DI.RAD_ITS ---
Exam(s) XR PORTABLE CHEST AP EXAM: XR PORTABLE CHEST AP CLINICAL HISTORY: chest tube placement. TECHNIQUE: 2D digital imaging was performed. COMPARISON: CR XR CHEST 2V PA LATERAL from 09/19/2022 FINDINGS: Single AP portable view. There has been interval placement of a pigtail thoracotomy tube on the left side and there has been s ignificant re-expansion of the left lung. Less than 5 percent remaining left pneumothorax. No shift . Small amount left pleural fluid again noted. Mild atelectasis in the left lower lobe. Heart size normal mediastinum not shifted. IMPRESSION: Improved left pneumothorax since placement of pigtail drainage catheter in left pleural space. Multi ple left-sided rib fractures noted.Left 5th through 7th ribs. DATA REPOSITORY: RADIATION DOSE DELIVERED:
--- NOTE | 2022-09-19 17:22 | ED.GENADUL_ITS ---
Discharge Plan Disposition Patient Disposition: Admit to [facility] Condition: Stable Discharge Details Chief Complaint: Chest/Rib Clinical Impression: Pneumothorax, Fracture of rib Primary Care Provider: Mayela Hernandez ED Provider: Jhonny Alvares Home Meds and New Rx's Prescriptions: No Action aspirin [Adult Aspirin Regimen] 81 mg tablet,delayed release (DR/EC) 81 mg PO DAILY cholecalciferol (vitamin D3) 50 mcg (2,000 unit) capsule 50 mcg PO DAILY tamsulosin [Flomax] 0.4 mg capsule 0.8 mg PO DAILY Qty: 180 3RF Rx Instructions: note dosage increase clotrimazole 1 % cream 1 applic topical BID Qty: 45 0RF Rx Instructions: Apply to affected areas twice a dayfor 2-4wks acetaminophen [Tylenol] 325 mg capsule 325 mg PO ONCE PRN methocarbamol 750 mg tablet 750 mg PO QHS naproxen sodium [Aleve] 220 MG tablet 220 mg PO daily prn magnesium oxide 400 mg (241.3 mg magnesium) tablet 250 mg PO DAILY simvastatin 20 mg tablet 20 mg PO DAILY Qty: 90 3RF Medical Decision Making 57-year-old male presents after sustaining traumatic rib fractures and left- sided pneumothorax approximately 1 week ago after mechanical fall on stairs, worsening pneumothorax over the past week now approximately one third of the left thoracic cavity, causing mild shortness of breath and discomfort. Patient is hemodynamically stable no other signs of trauma. Referred to emergency department by primary care physician for chest tube and admission. Labs were obtained upon arrival, anxiolysis/analgesia administered. Patient consented for left pigtail catheter placement. Risk and benefits were discussed. Patient tolerated pigtail placement under sterile field. Vital signs stable normoxic no distress. Slight discomfort and coughing upon reexpansion. Bedside x-ray showing reexpansion of pneumothorax. Chest tube tidaling to canister. Labs unremarkable. Patient to be admitted to general surgery Dr. Wadsworth for further management. HPI General Date/Time Provider Initiated Documentation: 09/19/22 14:57 . HPI Narrative: 57-year-old male presents approximately 1 week after mechanical slip and fall on a staircase while he was visiting family in [place], fell onto his back/left side, was seen at local emergency department diagnosed with left-sided rib fractures and small pneumothorax, given size pneumothorax stability of patient's vital signs patient was discharged home, patient drove home from his trip. Due to persistent discomfort he obtained an outpatient x-ray today which shows an expanding pneumothorax and area of likely hemothorax Related Data Home Medications Medication Instructions Recorded Confirmed naproxen sodium 220 mg tablet 220 mg PO daily prn 07/11/14 09/19/22 (Aleve) cholecalciferol (vitamin D3) 50 50 mcg PO DAILY 04/16/19 09/19/22 mcg (2,000 unit) capsule aspirin 81 mg tablet,delayed 81 mg PO DAILY 12/12/19 09/19/22 release (Adult Aspirin Regimen) magnesium oxide 400 mg (241.3 mg 250 mg PO DAILY 03/17/20 09/19/22 magnesium) tablet tamsulosin 0.4 mg capsule (Flomax) 0.8 mg PO DAILY #180 caps 01/25/22 09/19/22 simvastatin 20 mg tablet 20 mg PO DAILY #90 tabs 02/10/22 09/19/22 clotrimazole 1 % topical cream 1 applic topical BID #45 grams 03/29/22 09/19/22 acetaminophen 325 mg capsule 325 mg PO ONCE PRN 09/16/22 09/19/22 (Tylenol) methocarbamol 750 mg tablet 750 mg PO QHS 09/16/22 09/19/22 Previous Rx's Medication Instructions Recorded tamsulosin 0.4 mg capsule (Flomax) 0.8 mg PO DAILY #180 caps 01/25/22 simvastatin 20 mg tablet 20 mg PO DAILY #90 tabs 02/10/22 clotrimazole 1 % topical cream 1 applic topical BID #45 grams 03/29/22 Allergies Allergy/AdvReac Type Severity Reaction Status Date / Time ibuprofen Allergy Intermediate itchy,hives Verified 09/19/22 14:53 latex Allergy Intermediate itching/bum Verified 09/19/22 14:53 ps General Stated Complaint: Chest/Rib GULSHAN: 2 Review of Systems Narrative: Review of Systems Constitutional: negative Eyes: negative ENT: negative Cardiovascular: negative Respiratory: Shortness of breath, chest pain Gastrointestinal: negative : negative Musculoskeletal: negative Skin: negative Neurologic: negative Psych: negative PFSH All Active Problems (Updated 09/19/22 @ 17:31 by Jhonny Alvares MD) Pneumothorax (Acute) Fracture of rib (Acute) Fracture, ribs (Acute) Pneumothorax (Acute) Left elbow pain (Acute) ? tendonitis Hyperlipidemia (Acute) History of bicuspid aortic valve (Acute) Epididymal cyst (Acute) Testicle pain (Acute) left side intermittent Transient confusion (Acute 06/01/16) Migraine equivalent; magnesium helping Mitral valve regurgitation (Acute) echo 07/05-mild regurgitation; bicuspid valve Benign prostatic hyperplasia (Acute 06/01/16) Medical History BPH (benign prostatic hyperplasia) Family history of colon cancer Paternal: aunt, grandmother, and grandfather Heart murmur H/O bicuspid aortic valve; H/O torn chordae Hematospermia Left inguinal hernia Migraine aura without headache (08/11/16) Palpitations extensive w/u; 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 MALIK CONTE Family History Mother Hyperlipidemia Neoplasm SKIN Sister Depression Sister Neoplasm BREAST Alcohol use disorder Grandfather Heart disease Stroke Grandfather Essential hypertension Heart disease Grandmother Neoplasm BREAST Maternal Aunt Neoplasm Maternal Aunt Neoplasm Social History Smoking/Tobacco Use Status: Never Second Hand Exposure: Yes Smoking risk assessment performed?: Yes Alcohol Intake: current Alcohol Intake frequency: a few times a week Alcohol type: beer Drug use: Never Substance use type: does not use Household members: spouse and children Housing: house Communication Needs: None Do you need help understanding health information?: Never Pets and animals: Yes Pets and animals: dog(s) Sexually active: Yes Do you think of yourself as: straight/heterosexual Current gender identity: male What is your relationship status?: How often do you talk on the phone with friends or family?: twice per week How often do you get together with friends or relatives?: twice per week How often do you attend anabaptist or caodaism services?: 1-3 times per year Do you belong to any clubs or organized social groups?: yes Panel score (0-1 are the most socially isolated patients): 3 What type of physical activity do you participate in: walking, aerobic, bicycling and yoga Duration: 60-90 minutes/day Frequency: 5-6 times per week Bisi/Nondenominational: No preference Special bisi needs: No Seatbelt use: always Helmet use: Yes Helmet use: always Drive intox or ride w/intox furniture mover driver: No Do you feel safe at home: Yes Do you feel safe in your relationship?: Yes Exam Narrative Exam Narrative: Physical Examination General: alert, awake, cooperative, resting comfortably, no acute distress HEENT: normocephalic, atraumatic; PERRL, EOM intact, conjunctiva normal; no nasal discharge; moist mucous membranes, oral and pharyngeal mucosa normal, tolerating secretions Neck: supple, trachea midline; full ROM Chest: normal to inspection Respiratory: normal respiratory effort, speaking in full sentences, decreased breath sounds on left side, clear lung sounds on the right Cardiac: regular rate, regular rhythm, S1S2 intact, no murmurs rubs or gallops GI: abdomen soft, non-tender, non-distended; no palpable mass or hepatosplenomegaly Skin: no lesions, rashes or trauma appreciated Neuro: AAOx3, normal speech, moving all extremities Psych: Appropriate mood and affect Course Vital Signs Vital signs: Vital Signs Temperature 37 C 09/19/22 14:49 Pulse 87 09/19/22 14:49 Respiratory Rate 20 09/19/22 14:49 Blood Pressure 130/77 09/19/22 14:49 Pulse Oximetry 94 09/19/22 14:49 Temperature 37 C 09/19/22 14:49 Temperature Source Oral 09/19/22 14:49 Pulse 87 09/19/22 14:49 Respiratory Rate 20 09/19/22 14:49 Respiratory Effort Normal, Non-Labored 09/19/22 15:09 Respiratory Depth Normal 09/19/22 15:09 Respiratory Pattern Normal 09/19/22 15:09 Blood Pressure 130/77 09/19/22 14:49 Blood Pressure Position Sitting 09/19/22 14:49 Pulse Oximetry 94 09/19/22 14:49 Oxygen Delivery Method Nasal Cannula 09/19/22 14:49 Oxygen Flow Rate 2 09/19/22 14:49 Pain Level 2 09/19/22 15:53 Lab/Test Results Lab/Test Results: Laboratory Tests Range/Units 09/19/22 09/19/22 09/19/22 15:34 15:34 15:34 WBC (4.4-10.8) 10^3/uL 6.92 RBC (4.36-5.78) 10^6/uL 4.74 Hgb (13.5-17.5) g/dL 15.4 Hct (40.0-50.0) % 41.6 MCV (80-95) fL 88 MCH (27.0-33.0) pg 32.5 MCHC (32.0-36.0) % 37.0 H RDW (11.8-14.1) % 10.8 L Plt Count (130-400) 10^3/uL 214 MPV (8.0-11.0) fL 9.3 Immature Gran % 0.4 Neutrophils % 62.9 Lymphocytes % 21.2 Monocytes % 7.5 Eosinophils % 7.1 Basophils % 0.9 Nucleated RBC % (0.0-0.3) % 0.0 Absolute Neutrophils (1.2-6.7) 10^3/uL 4.35 Absolute Lymphocytes (1.2-3.4) 10^3/uL 1.47 Absolute Monocytes (0.1-0.8) 10^3/uL 0.52 Absolute Eosinophils (0.0-0.7) 10^3/uL 0.49 Absolute Basophils (0.0-0.2) 10^3/uL 0.06 PT (9.3-11.0) sec 9.9 INR (0.9-1.1) 1.0 APTT (21.5-31.9) sec 29.5 Sodium (136-145) mmol/L 143 Potassium (3.5-5.1) mmol/L 3.5 Chloride (98-107) mmol/L 108 H Carbon Dioxide (21.0-32.0) mmol/L 28.6 Anion Gap (3-11) mmol/L 6.4 BUN (7-18) mg/dL 15 Creatinine (0.70-1.30) mg/dL 0.9 Est GFR (CKD-EPI 2020) (mL/min/1.73m2) 99.62 Glucose (74-106) mg/dL 98 Calcium (8.5-10.1) mg/dL 8.1 L Total Bilirubin (0.2-1.0) mg/dL 0.5 AST (15-37) U/L 19 ALT (16-63) U/L 26 Alkaline Phosphatase (46-116) U/L 67 Total Protein (6.4-8.2) g/dL 6.2 L Albumin (3.4-5.0) g/dL 3.3 L Patient ABO/Rh Antibody Screen Range/Units 09/19/22 15:34 WBC (4.4-10.8) 10^3/uL RBC (4.36-5.78) 10^6/uL Hgb (13.5-17.5) g/dL Hct (40.0-50.0) % MCV (80-95) fL MCH (27.0-33.0) pg MCHC (32.0-36.0) % RDW (11.8-14.1) % Plt Count (130-400) 10^3/uL MPV (8.0-11.0) fL Immature Gran % Neutrophils % Lymphocytes % Monocytes % Eosinophils % Basophils % Nucleated RBC % (0.0-0.3) % Absolute Neutrophils (1.2-6.7) 10^3/uL Absolute Lymphocytes (1.2-3.4) 10^3/uL Absolute Monocytes (0.1-0.8) 10^3/uL Absolute Eosinophils (0.0-0.7) 10^3/uL Absolute Basophils (0.0-0.2) 10^3/uL PT (9.3-11.0) sec INR (0.9-1.1) APTT (21.5-31.9) sec Sodium (136-145) mmol/L Potassium (3.5-5.1) mmol/L Chloride (98-107) mmol/L Carbon Dioxide (21.0-32.0) mmol/L Anion Gap (3-11) mmol/L BUN (7-18) mg/dL Creatinine (0.70-1.30) mg/dL Est GFR (CKD-EPI 2020) (mL/min/1.73m2) Glucose (74-106) mg/dL Calcium (8.5-10.1) mg/dL Total Bilirubin (0.2-1.0) mg/dL AST (15-37) U/L ALT (16-63) U/L Alkaline Phosphatase (46-116) U/L Total Protein (6.4-8.2) g/dL Albumin (3.4-5.0) g/dL Patient ABO/Rh O Positive Antibody Screen NEGATIVE Procedures Chest Tube Chest Tube 1: Chest Tube Location: anterior axillary line Chest Tube Prep: sterile drapes applied (chlorahexadine prep) Local Anesthetic: Lidocaine 1% Amount of anesthesia used (mL): 8 Incision Made With: #11 blade Post Procedure: sutured to skin and sterile dressing applied Tube Drainage: see nurses notes Post Procedure CXR?: Yes Patient Tolerated Procedure: Yes PAWSS Have you Been Recently Intoxicated or Drunk Within the Last 30 days?: No Have you Ever Experienced Previous Episodes of Alcohol Withdrawal?: No Have you ever Experienced Withdrawal Seizures?: No Have you ever Experienced Delirium Tremens(DT)s?: No Have you ever undergone Alcohol Rehabilitation Treatment (i.e, inpt ot outpatient treatment programs)?: No Have you ever Experienced Blackouts?: No Have you ever Combined Alcohol with other Downers within the last 90 days?: No Have you ever Combined Alcohol with any other Substance of Abuse during the last 90 days?: No Positive Blood Alcohol level on Presentation? [PCS.BAL]: No Evidence of Increased Autonomic Activity (i.e. HR>120, tremor, sweating, agit ation, nausea)?: No Result: 0
--- NOTE | 2022-09-19 17:33 | HPE_ITS ---
Date of service: 09/19/22 Time of Service: 17:33 Assessment and Plan Assessment and plan (1) Pneumothorax: Status: Acute Assessment and plan: Mr. Smart is a 57-year-old gentleman who had some trauma to his left chest a little bit over a week ago. He comes in with worsening pneumothorax. We placed a chest tube in the ER and his lung has reexpanded. I discussed admission with the patient as well as pain control. We reviewed reasons to take deep breaths and cough as we want him to avoid a pneumonia. I will treat him with multimodal pain control with Toradol, Tylenol, morphine, tramadol, gabapentin and a muscle relaxant. There will be a chest x-ray ordered for tomorrow morning. If his lung is still up and there is no air leak then we will clamp his chest tube and do another x- ray in a few hours. If that is okay we will keep him another 12 hours and then if his lung is expanded we will remove his chest tube. He is otherwise healthy and is not a non-smoker so I hope that his lung can heal pretty quickly. The patient does have a allergy to ibuprofen listed but he is able to take Aleve without any issues. The allergy to ibuprofen is hives and itching. I discussed Toradol with the patient and I do feel that a he will benefit from that but also if he is able to take Aleve he should be able to take Toradol without any trouble. (2) Fracture, ribs: Status: Acute History of Present Illness Consults Consult date: 09/19/22 Requesting physician: Jhonny Alvares Narrative: Mr. Smart is a very pleasant 57-year-old gentleman who around Monday in the fell down a couple stairs when he was in [place]. He had some chest pain but did not think much about it. After 48 hours of pain he went to the urgent care there where he was diagnosed with a pneumothorax. He was sent to the hospital. He was told that he had about a 20% pneumo and was admitted for observation. The pneumothorax stayed stable so no chest tube was placed. He was then discharged and traveled by car back to [place]. He was seen by Jose Finn on Monday and had a chest x-ray scheduled for today. Chest x-ray today showed a 40% pneumothorax. Jose called me and I asked him to send the patient to the emergency department so we could place a chest tube and admit him. He was seen in the emergency department by Dr. Alvares who placed a small pigtail chest tube and follow-up chest x-ray shows an re-expanded lung. He is otherwise healthy 57-year-old. He does have some mitral regurgitation. Review of Systems Constitutional Constitutional: Denies fever(s), Denies headache(s) and Denies weight loss Eyes Eyes: Reports system reviewed and no additional complaints, except as documented ENT Ears, Nose, Mouth, and Throat: Reports system reviewed and no additional complaints, except as documented and Denies headache(s) Cardiovascular Cardiovascular: Denies chest pain, Denies chest pain at rest, Denies irregular heart rhythm and Denies palpitations Respiratory Respiratory: Reports as per HPI Gastrointestinal Gastrointestinal: Reports system reviewed and no additional complaints, except as documented Genitourinary Genitourinary: Reports system reviewed and no additional complaints, except as documented Musculoskeletal Musculoskeletal: Reports system reviewed and no additional complaints, except as documented Integumentary/Breasts Skin/Breast: Reports system reviewed and no additional complaints, except as documented Neurologic Neurologic: Reports system reviewed and no additional complaints, except as documented and Denies headache(s) Endocrine Endocrine: Denies palpitations PFSH All Active Problems Pneumothorax (Acute) Fracture of rib (Acute) Fracture, ribs (Acute) Pneumothorax (Acute) Left elbow pain (Acute) ? tendonitis Hyperlipidemia (Acute) History of bicuspid aortic valve (Acute) Epididymal cyst (Acute) Testicle pain (Acute) left side intermittent Transient confusion (Acute 06/01/16) Migraine equivalent; magnesium helping Mitral valve regurgitation (Acute) echo 07/05-mild regurgitation; bicuspid valve Benign prostatic hyperplasia (Acute 06/01/16) Medical History BPH (benign prostatic hyperplasia) Family history of colon cancer Paternal: aunt, grandmother, and grandfather Heart murmur H/O bicuspid aortic valve; H/O torn chordae Hematospermia Left inguinal hernia Migraine aura without headache (08/11/16) Palpitations extensive w/u; 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 MALIK CONTE Family History Mother Hyperlipidemia Neoplasm SKIN Sister Depression Sister Neoplasm BREAST Alcohol use disorder Grandfather Heart disease Stroke Grandfather Essential hypertension Heart disease Grandmother Neoplasm BREAST Maternal Aunt Neoplasm Maternal Aunt Neoplasm Social History Smoking/Tobacco Use Status: Never Second Hand Exposure: Yes Smoking risk assessment performed?: Yes Alcohol Intake: current Alcohol Intake frequency: a few times a week Alcohol type: beer Drug use: Never Substance use type: does not use Household members: spouse and children Housing: house Communication Needs: None Do you need help understanding health information?: Never Pets and animals: Yes Pets and animals: dog(s) Sexually active: Yes Do you think of yourself as: straight/heterosexual Current gender identity: male What is your relationship status?: How often do you talk on the phone with friends or family?: twice per week How often do you get together with friends or relatives?: twice per week How often do you attend anabaptism or presybeterian services?: 1-3 times per year Do you belong to any clubs or organized social groups?: yes Panel score (0-1 are the most socially isolated patients): 3 What type of physical activity do you participate in: walking, aerobic, bicycling and yoga Duration: 60-90 minutes/day Frequency: 5-6 times per week Bisi/Rastafari: No preference Special bisi needs: No Seatbelt use: always Helmet use: Yes Helmet use: always Drive 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 Do you feel safe at home: Yes Do you feel safe in your relationship?: Yes Meds Allergies and Home Medications Allergies Allergy/AdvReac Type Severity Reaction Status Date / Time ibuprofen Allergy Intermediate itchy,hives Verified 09/19/22 14:53 latex Allergy Intermediate itching/bum Verified 09/19/22 14:53 ps Home Medications Medication Instructions Recorded Confirmed Type naproxen sodium 220 mg tablet 220 mg PO daily prn 07/11/14 09/19/22 History (Aleve) cholecalciferol (vitamin D3) 50 50 mcg PO DAILY 04/16/19 09/19/22 History mcg (2,000 unit) capsule aspirin 81 mg tablet,delayed 81 mg PO DAILY 12/12/19 09/19/22 History release (Adult Aspirin Regimen) magnesium oxide 400 mg (241.3 mg 250 mg PO DAILY 03/17/20 09/19/22 History magnesium) tablet tamsulosin 0.4 mg capsule (Flomax) 0.8 mg PO DAILY #180 caps 01/25/22 09/19/22 Rx simvastatin 20 mg tablet 20 mg PO DAILY #90 tabs 02/10/22 09/19/22 Rx clotrimazole 1 % topical cream 1 applic topical BID #45 grams 03/29/22 09/19/22 Rx acetaminophen 325 mg capsule 325 mg PO ONCE PRN 09/16/22 09/19/22 History (Tylenol) methocarbamol 750 mg tablet 750 mg PO QHS 09/16/22 09/19/22 History Exam Const General: cooperative, comfortable and no acute distress Orientation: alert and oriented x3 HENMT Head: normal to inspection and normocephalic Resp Effort & Inspection: normal respiratory effort Auscultation: clear to auscultation bilaterally Cardio Rate: regular rate Rhythm: regular rhythm Heart Sounds: no gallops, murmur and no rubs Results Imaging Chest x-ray: report reviewed and image reviewed Labs 09/19/22 15:34 09/19/22 15:34 Labs: Laboratory Results - last 24 hr 09/19/22 09/19/22 09/19/22 15:34 15:34 15:34 WBC 6.92 RBC 4.74 Hgb 15.4 Hct 41.6 MCV 88 MCH 32.5 MCHC 37.0 H RDW 10.8 L Plt Count 214 MPV 9.3 Immature Gran % 0.4 Neutrophils % 62.9 Lymphocytes % 21.2 Monocytes % 7.5 Eosinophils % 7.1 Basophils % 0.9 Nucleated RBC % 0.0 Absolute Neutrophils 4.35 Absolute Lymphocytes 1.47 Absolute Monocytes 0.52 Absolute Eosinophils 0.49 Absolute Basophils 0.06 PT 9.9 INR 1.0 APTT 29.5 Sodium 143 Potassium 3.5 Chloride 108 H Carbon Dioxide 28.6 Anion Gap 6.4 BUN 15 Creatinine 0.9 Est GFR (CKD-EPI 2021) 99.62 Glucose 98 Calcium 8.1 L Total Bilirubin 0.5 AST 19 ALT 26 Alkaline Phosphatase 67 Total Protein 6.2 L Albumin 3.3 L Patient ABO/Rh Antibody Screen 09/19/22 15:34 WBC RBC Hgb Hct MCV MCH MCHC RDW Plt Count MPV Immature Gran % Neutrophils % Lymphocytes % Monocytes % Eosinophils % Basophils % Nucleated RBC % Absolute Neutrophils Absolute Lymphocytes Absolute Monocytes Absolute Eosinophils Absolute Basophils PT INR APTT Sodium Potassium Chloride Carbon Dioxide Anion Gap BUN Creatinine Est GFR (CKD-EPI 2020) Glucose Calcium Total Bilirubin AST ALT Alkaline Phosphatase Total Protein Albumin Patient ABO/Rh O Positive Antibody Screen NEGATIVE Last Vital Signs Temp 98.6 F 09/19/22 14:49 Pulse 87 09/19/22 14:49 Resp 20 09/19/22 14:49 BP 130/77 09/19/22 14:49 Pulse Ox 94 09/19/22 14:49 PAWSS Have you Been Recently Intoxicated or Drunk Within the Last 30 days?: No Have you Ever Experienced Previous Episodes of Alcohol Withdrawal?: No Have you ever Experienced Withdrawal Seizures?: No Have you ever Experienced Delirium Tremens(DT)s?: No Have you ever undergone Alcohol Rehabilitation Treatment (i.e, inpt ot outpatient treatment programs)?: No Have you ever Experienced Blackouts?: No Have you ever Combined Alcohol with other Downers within the last 90 days?: No Have you ever Combined Alcohol with any other Substance of Abuse during the last 90 days?: No Positive Blood Alcohol level on Presentation? [PCS.BAL]: No Evidence of Increased Autonomic Activity (i.e. HR>120, tremor, sweating, agitation, nausea)?: No Result: 0 Time Spent Time spent with Patient: 40-54 minutes Time was spent: preparing to see the patient(eg.review tests), obtaining and/or reviewing separately otained hiistory, ordering medications,tests, procedures, indepentently interpreting results and counseling the patient
[2022-09-19] MEDS: ACETAMINOPHEN 1,000 MG/100 ML BTL 400 MG IVPB (17:40)
[2022-09-19] MEDS: Ondansetron 4 MG/2 ML VIAL IVP (18:35)
[2022-09-19] MEDS: MORPHine 4 MG/ML SYR 2 MG IVP ×2 (18:35→19:48)
[2022-09-19 19:40] VITALS: BP 129/80; PULSE 71; RESP 16; TEMP 36.7; O2SAT 100
[2022-09-19] MEDS: Cyclobenzaprine 10 MG TAB PO (19:48)
[2022-09-19] MEDS: Ketorolac 15 MG/ML VIAL IVP (19:48)
[2022-09-19] MEDS: Enoxaparin 40 MG/0.4 ML SYR SC (21:59)
[2022-09-19] MEDS: Normal Saline 1,000 ML 125 ML IV (22:39)
[2022-09-20] MEDS: Ketorolac 15 MG/ML VIAL IVP ×4 (01:19→18:34)
[2022-09-20] MEDS: MORPHine 4 MG/ML SYR 2 MG IVP ×6 (02:06→23:55)
[2022-09-20 03:25] VITALS: BP 128/76; PULSE 68; RESP 16; TEMP 36.6; O2SAT 99
[2022-09-20 04:24] VITALS: BP 128/76; PULSE 68; RESP 16; O2SAT 99
[2022-09-20] MEDS: Normal Saline 1,000 ML 125 ML IV (06:35)
[2022-09-20 07:18] VITALS: BP 133/80; PULSE 60; RESP 16; TEMP 36.5; O2SAT 97
[2022-09-20] MEDS: Gabapentin 300 MG CAP PO ×3 (07:50→20:09)
[2022-09-20] MEDS: Cyclobenzaprine 10 MG TAB PO ×3 (07:50→20:09)
[2022-09-20] MEDS: Polyethylene Glycol 3350 17 GM PACKET PO ×2 (07:50→16:11)
--- NOTE | 2022-09-20 08:36 | DI.RAD_ITS ---
Exam(s) XR CHEST 2V PA LATERAL EXAM: XR CHEST 2V PA LATERAL CLINICAL HISTORY: PTX. TECHNIQUE: 2D digital imaging was performed. COMPARISON: CR XR PORTABLE CHEST AP from 09/19/2022 FINDINGS: 2 views: Heart size is normal. The mediastinum is not widened. No mediastinal shift. Left pleural space pigtail catheter is again noted and the left lung remains mostly re-expanded with approximately 5 percent remaining apical pneumothorax. Multiple left-sided rib fractures again noted . Small left pleural effusion has not increased in size from yesterday. Opposite-right lung remains clear. IMPRESSION: 5 percent remaining left pneumothorax. Left intrathoracic pigtail catheter. Small left pleural effu eder. Multiple left-sided rib fractures. DATA REPOSITORY: RADIATION DOSE DELIVERED:
--- NOTE | 2022-09-20 08:49 | INITIAL_ITS ---
Date of service: 09/20/22 Time of Service: 08:50 Care Management Initial Assmt Initial Assessment REASON FOR HOSPITALIZATION:: pneumothorax PREVIOUS FUNCTIONAL STATUS/SOCIAL/FAMILY SUPPORTS:: John lives in a single family home in [place] with his Olivia and 2 sons Salvador and Chaz. 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 He is independent at baseline and does not receive any community services. CURRENT FUNCTIONAL STATUS:: John was sitting up in bed visiting with his when CM met with him. He was pleasant and engaged easily with CM. John shared that his shortness of breath is better but that he still has pain, particularly at the chest tube insertion site. Chest xray this morning showed the persistent presence of a small (5%) pneomothorax . Another chest xray will be done in the morning. If pneumothorax resolves he will be discharged. ADVANCE DIRECTIVES:: none on file Has patient been provided with info about the portal/API?: Yes Did the patient sign up for the portal?: Yes CODE STATUS:: Full Code INSURANCE COVERAGE / FINANCIAL ISSUES:: /[facility] CURRENT HOME/COMMUNITY SERVICES/EQUIPMENT:: none PRIMARY CARE PHYSICIAN:: Mayela Hernandez POTENTIAL DISCHARGE NEEDS:: follow up with PCP and plan of care PATIENT/FAMILY EDUCATION NEEDS:: Review of discharge instructions, limitations, activity, follow up plan, discuss Ask Me Three TRANSPORTATION:: via private vehicle with family PLAN:: Anticipate that John will be discharged home with no new services when medically cleared. He will follow up with surgery and his PCP and transport with family. CM will follow and support discharge needs. PFSH All Active Problems Pneumothorax (Acute) Fracture of rib (Acute) Fracture, ribs (Acute) Pneumothorax (Acute) Left elbow pain (Acute) ? tendonitis Hyperlipidemia (Acute) History of bicuspid aortic valve (Acute) Epididymal cyst (Acute) Testicle pain (Acute) left side intermittent Transient confusion (Acute 06/01/16) Migraine equivalent; magnesium helping Mitral valve regurgitation (Acute) echo 07/05-mild regurgitation; bicuspid valve Benign prostatic hyperplasia (Acute 06/01/16) Medical History BPH (benign prostatic hyperplasia) Family history of colon cancer Paternal: aunt, grandmother, and grandfather Heart murmur H/O bicuspid aortic valve; H/O torn chordae Hematospermia Left inguinal hernia Migraine aura without headache (08/11/16) Palpitations extensive w/u; 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 MALIK CONTE Family History Mother Hyperlipidemia Neoplasm SKIN Sister Depression Sister Neoplasm BREAST Alcohol use disorder Grandfather Heart disease Stroke Grandfather Essential hypertension Heart disease Grandmother Neoplasm BREAST Maternal Aunt Neoplasm Maternal Aunt Neoplasm Social History Smoking/Tobacco Use Status: Never Second Hand Exposure: Yes Smoking risk assessment performed?: Yes Alcohol Intake: current Alcohol Intake frequency: a few times a week Alcohol type: beer Drug use: Never Substance use type: does not use Household members: spouse and children Housing: house Communication Needs: None Do you need help understanding health information?: Never Pets and animals: Yes Pets and animals: dog(s) Sexually active: Yes Do you think of yourself as: straight/heterosexual Current gender identity: male What is your relationship status?: How often do you talk on the phone with friends or family?: twice per week How often do you get together with friends or relatives?: twice per week How often do you attend buddhism or worship services?: 1-3 times per year Do you belong to any clubs or organized social groups?: yes Panel score (0-1 are the most socially isolated patients): 3 What type of physical activity do you participate in: walking, aerobic, bicycling and yoga Duration: 60-90 minutes/day Frequency: 5-6 times per week Bisi/Yazidism: No preference Special bisi needs: No Seatbelt use: always Helmet use: Yes Helmet use: always Drive intox or ride w/intox 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
[2022-09-20 11:18] VITALS: BP 116/73; PULSE 60; RESP 16; TEMP 36.5; O2SAT 96
--- NOTE | 2022-09-20 11:30 | PGE_ITS ---
Date of Service Date of service: 09/20/22 Time of Service: 11:31 Assessment and Plan Assessment and plan (1) Pneumothorax: Status: Acute Assessment and plan: Chest Xray this morning shows persistent 5% pneumothorax No air leak noted on exam Encouraged sitting in the chair and ambulation as tolerated. Continue with incentive spirometer. Will recheck chest xray tomorrow. Patient seen and examined. Agree to above. No airleak. No fluid. Lung is up on x-ray. We will put to waterseal and repeat x-ray. Continue pulmonary toilet Patient needs to have a bowel movement discussed with him the importance of avoiding straining. Walk to tolerance Continue supportive care (2) Fracture, ribs: Status: Acute Subjective Subjective Interval history since last seen: Patient reports he is feeling less SOB today. He does have some discomfort around the chest tube insertion point. Exam Const General: cooperative, healthy appearing and comfortable Orientation: alert and oriented x3 Resp Effort & Inspection: normal respiratory effort, no audible wheezes and no cough Other: Chest tube in place. No air leak appreciated on exam. Objective Last Vital Signs Temp 36.5 C 09/20/22 11:18 Pulse 60 09/20/22 11:18 Resp 16 09/20/22 11:18 BP 116/73 09/20/22 11:18 Pulse Ox 96 09/20/22 11:18 Laboratory Results - last 24 hr 09/19/22 09/19/22 09/19/22 15:34 15:34 15:34 WBC 6.92 RBC 4.74 Hgb 15.4 Hct 41.6 MCV 88 MCH 32.5 MCHC 37.0 H RDW 10.8 L Plt Count 214 MPV 9.3 Immature Gran % 0.4 Neutrophils % 62.9 Lymphocytes % 21.2 Monocytes % 7.5 Eosinophils % 7.1 Basophils % 0.9 Nucleated RBC % 0.0 Absolute Neutrophils 4.35 Absolute Lymphocytes 1.47 Absolute Monocytes 0.52 Absolute Eosinophils 0.49 Absolute Basophils 0.06 PT 9.9 INR 1.0 APTT 29.5 Sodium 143 Potassium 3.5 Chloride 108 H Carbon Dioxide 28.6 Anion Gap 6.4 BUN 15 Creatinine 0.9 Est GFR (CKD-EPI 2020) 99.62 Glucose 98 Calcium 8.1 L Total Bilirubin 0.5 AST 19 ALT 26 Alkaline Phosphatase 67 Total Protein 6.2 L Albumin 3.3 L Patient ABO/Rh Antibody Screen 09/19/22 15:34 WBC RBC Hgb Hct MCV MCH MCHC RDW Plt Count MPV Immature Gran % Neutrophils % Lymphocytes % Monocytes % Eosinophils % Basophils % Nucleated RBC % Absolute Neutrophils Absolute Lymphocytes Absolute Monocytes Absolute Eosinophils Absolute Basophils PT INR APTT Sodium Potassium Chloride Carbon Dioxide Anion Gap BUN Creatinine Est GFR (CKD-EPI 2020) Glucose Calcium Total Bilirubin AST ALT Alkaline Phosphatase Total Protein Albumin Patient ABO/Rh O Positive Antibody Screen NEGATIVE PAWSS Have you Been Recently Intoxicated or Drunk Within the Last 30 days?: No Have you Ever Experienced Previous Episodes of Alcohol Withdrawal?: No Have you ever Experienced Withdrawal Seizures?: No Have you ever Experienced Delirium Tremens(DT)s?: No Have you ever undergone Alcohol Rehabilitation Treatment (i.e, inpt ot outpatient treatment programs)?: No Have you ever Experienced Blackouts?: No Have you ever Combined Alcohol with other Downers within the last 90 days?: No Have you ever Combined Alcohol with any other Substance of Abuse during the last 90 days?: No Positive Blood Alcohol level on Presentation? [PCS.BAL]: No Evidence of Increased Autonomic Activity (i.e. HR>120, tremor, sweating, agitation, nausea)?: No Result: 0 Time Spent with Patient Time Spent with Patient: <25 minutes Time was spent: preparing to see the patient(eg.review tests), obtaining and/or reviewing separately otained hiistory, ordering medications,tests, procedures, referring, communicating with other health healthcare representative, indepentently interpreting results, counseling the patient and care coordination
[2022-09-20] MEDS: Normal Saline Flush 10 ML SYR IVP ×2 (13:45→18:34)
[2022-09-20 15:13] VITALS: BP 124/78; PULSE 68; RESP 16; TEMP 36.5; O2SAT 98
--- NOTE | 2022-09-20 15:22 | CHAPLAIN ---
Santana was in bed when I stopped in. His (?) was with him. Santana said he's feeling better and hoping he's improved enough to get the tube removed from his lung soon. I explained my role and offered support.
--- NOTE | 2022-09-20 16:02 | DI.RAD_ITS ---
Exam(s) XR PORTABLE CHEST AP EXAM: XR PORTABLE CHEST AP CLINICAL HISTORY: ptx. TECHNIQUE: 2D digital imaging was performed. COMPARISON: CR XR CHEST 2V PA LATERAL from 09/20/2022 earlier same date and prior images. FINDINGS: Single AP portable view. Left side pigtail pleural space tube again noted. No significant remaining left side pneumothorax. No pleural effusions. Right lung remains clear. Tiny amount of left pleural fluid Heart size is upper normal. The mediastinum is not widened. Left-sided rib fractures again noted. IMPRESSION: Left lung is re-expanded. No obvious remaining pneumothorax. DATA REPOSITORY: RADIATION DOSE DELIVERED:
[2022-09-20] MEDS: Enoxaparin 40 MG/0.4 ML SYR SC (18:46)
[2022-09-20] MEDS: Simvastatin 20 MG TAB PO (21:12)
[2022-09-20 23:53] VITALS: BP 158/83; PULSE 63; RESP 17; TEMP 36.1; O2SAT 98
[2022-09-21] MEDS: Ketorolac 15 MG/ML VIAL IVP ×3 (00:07→13:32)
[2022-09-21] MEDS: Normal Saline Flush 10 ML SYR IVP ×2 (07:23→13:31)
[2022-09-21 07:35] VITALS: BP 135/81; PULSE 59; RESP 17; TEMP 36.3; O2SAT 97
--- NOTE | 2022-09-21 07:37 | PGE_ITS ---
Date of Service Date of service: 09/21/22 Time of Service: 07:37 Assessment and Plan Assessment and plan (1) Pneumothorax: Status: Acute Assessment and plan: Chest tube was placed on waterseal yesterday. We will repeat chest x-ray this morning, if his lung continues to be reexpanded we will be able to remove chest tube today. Encouraged sitting in the chair and ambulation as tolerated. Continue with incentive spirometer. Continue supportive care. Agree with above note started by Iftikhar I looked at CXR. I could not see a PTX. Read by radiologist as small apical p neumo but improved since yesterday. There is no air leak EXAM: CHest: CTA A: Traumatic PTX now resolved P: Chest tube pulled Repeat CXR in 2 hours. If stable then D/C to home (2) Fracture, ribs: Status: Acute Subjective Subjective Interval history since last seen: Mr. Smart describes that he was able to get some sleep last night. He denies any chest pain or shortness of breath. He does however describe discomfort around his chest tube insertion site. Exam Const General: cooperative, healthy appearing and comfortable Orientation: alert and oriented x3 Resp Effort & Inspection: normal respiratory effort, no audible wheezes and no cough Objective Last Vital Signs Temp 36.3 C L 09/21/22 07:35 Pulse 59 L 09/21/22 07:35 Resp 17 09/21/22 07:35 BP 135/81 09/21/22 07:35 Pulse Ox 97 09/21/22 07:35 PAWSS Have you Been Recently Intoxicated or Drunk Within the Last 30 days?: No Have you Ever Experienced Previous Episodes of Alcohol Withdrawal?: No Have you ever Experienced Withdrawal Seizures?: No Have you ever Experienced Delirium Tremens(DT)s?: No Have you ever undergone Alcohol Rehabilitation Treatment (i.e, inpt ot outpatient treatment programs)?: No Have you ever Experienced Blackouts?: No Have you ever Combined Alcohol with other Downers within the last 90 days?: No Have you ever Combined Alcohol with any other Substance of Abuse during the last 90 days?: No Positive Blood Alcohol level on Presentation? [PCS.BAL]: No Evidence of Increased Autonomic Activity (i.e. HR>120, tremor, sweating, agitation, nausea)?: No Result: 0 Time Spent with Patient Time Spent with Patient: 25-34 minutes Time was spent: preparing to see the patient(eg.review tests), obtaining and/or reviewing separately otained hiistory, indepentently interpreting results and counseling the patient
[2022-09-21] MEDS: Magnesium Oxide 400 MG TAB PO (07:58)
[2022-09-21] MEDS: Cholecalciferol (Vitamin D3) 1,000 UNIT TAB 2000 UNITS PO (07:59)
[2022-09-21] MEDS: Tamsulosin 0.4 MG CAPCR 0.8 MG PO (08:00)
[2022-09-21] MEDS: Gabapentin 300 MG CAP PO ×2 (08:00→13:34)
[2022-09-21] MEDS: Cyclobenzaprine 10 MG TAB PO ×2 (08:01→13:34)
[2022-09-21] MEDS: Polyethylene Glycol 3350 17 GM PACKET PO ×2 (08:02→08:03)
--- NOTE | 2022-09-21 08:56 | DI.RAD_ITS ---
Exam(s) XR CHEST 2V PA LATERAL EXAM: XR CHEST 2V PA LATERAL CLINICAL HISTORY: ptx TECHNIQUE: 2D digital imaging was performed of the chest. Two images were obtained. PA and lateral views were obtained. COMPARISON: CR XR CHEST 2V PA LATERAL from 09/20/2022 CR XR PORTABLE CHEST AP from 09/20/2022 FINDINGS: MEDIASTINUM: Normal. HEART: Normal. PULMONARY VASCULATURE: Normal. LUNGS: Residual atelectasis is seen in the left lung base medially. PLEURAL SPACE: There is again seen a pigtail catheter in the left hemithorax. There may be a tiny st able residual left apical pneumothorax. There is a persistent small left pleural effusion. There is also a tiny right pleural effusion. BONE:Within normal limits for the patient's age. There again seen minimally displaced left rib fract ures. OTHER FINDINGS:There is a tiny amount of subcutaneous air along the left chest wall. IMPRESSION: 1. Left pigtail catheter in place. Tiny residual stable apical pneumothorax. 2. Residual left basilar atelectasis and small pleural effusions. DATA REPOSITORY: RADIATION DOSE DELIVERED:
[2022-09-21 10:24] VITALS: RESP 18; O2SAT 96
--- NOTE | 2022-09-21 14:11 | DSE_ITS ---
Date of service: 09/21/22 Time of Service: 14:11 DS: Diagnosis Discharge Diagnosis (1) Pneumothorax: Status: Acute (2) Fracture, ribs: Status: Acute Discharge Plan Disposition Patient Disposition: Home Condition: Stable Discharge Details Reason For Visit: Left Pneumothorax Admit Date/Time: 09/19/22 17:27 Admit Provider: Nina Wadsworth Attending Provider: Nina Wadsworth Primary Care Provider: [facility] Course Hospital Course: Mr. Smart is a pleasant 57 year old male admitted on Monday evening with a 40 % pneumothorax. He had a small chest tube placed in the ER. yesterday he still had a 5% pneumothorax. He had no air leak. He was placed on Waterseal. CXR the next day looked good. Chest tube was removed. Follow up CXR looked good Home Meds and New Rx's Prescriptions: New cyclobenzaprine 10 mg Tablet 10 mg PO TID Qty: 90 0RF tramadol 50 mg Tablet 50 mg PO Q6H PRN PRN (Reason: Pain) Qty: 14 0RF Continued aspirin [Adult Aspirin Regimen] 81 mg tablet,delayed release (DR/EC) 81 mg PO DAILY cholecalciferol (vitamin D3) 50 mcg (2,000 unit) capsule 50 mcg PO DAILY tamsulosin [Flomax] 0.4 mg capsule 0.8 mg PO DAILY Qty: 180 3RF Rx Instructions: note dosage increase clotrimazole 1 % cream 1 applic topical BID Qty: 45 0RF Rx Instructions: Apply to affected areas twice a dayfor 2-4wks acetaminophen [Tylenol] 325 mg capsule 325 mg PO ONCE PRN methocarbamol 750 mg tablet 750 mg PO QHS naproxen sodium [Aleve] 220 MG tablet 220 mg PO daily prn magnesium oxide 400 mg (241.3 mg magnesium) tablet 250 mg PO DAILY simvastatin 20 mg tablet 20 mg PO HS Discharge Instructions Instructions: Rib Fracture (GEN) Additional Instructions: Activity: Avoid any strenuous activity or contact sports for 1 months Avoid airplane rides for 4-6 weeks Remember to lift heavy things without holding your breath as that overinflates your lungs It is encouraged that you stay active Work: As long as it is comfortable you can go back to your job Diet: As tolerated Referrals: Antonia Montague PA [[employer]] - 09/29/22 10:30 am Activity:: see above Equipment/Supplies:: No Equipment Needed Diet:: As Tolerated DS: Summary Time Spent with Patient providing and/or coordinating discharge services: Greater than 30 minutes Status at Discharge Functional status at discharge: independent ambulation Overall status at discharge: patient is back to baseline Mental Status: mental status grossly normal Speech and Movement: speech and movement normal Mood: congruent mood Affect: normal affect Exam Psych Mental Status: mental status grossly normal Speech and Movement: speech and movement normal Mood: congruent mood Affect: normal affect DS: Data Vitals/I&O Vitals and I&O: Vital Signs Temperature 97.3 F L 09/21/22 07:35 Temperature Source Tympanic 09/21/22 07:35 Pulse 59 L 09/21/22 07:35 Pulse Rhythm Regular 09/21/22 08:10 Respiratory Rate 18 09/21/22 10:24 Respiratory Effort Normal, Non-Labored 09/21/22 08:10 Respiratory Depth Normal 09/21/22 08:10 Respiratory Pattern Normal 09/21/22 08:10 Blood Pressure 135/81 09/21/22 07:35 Blood Pressure Position Sitting 09/19/22 14:49 Pulse Oximetry 96 09/21/22 10:24 Oxygen Delivery Method Room Air 09/21/22 10:24 Oxygen Flow Rate 0 09/21/22 10:24 Pain Level 2 09/21/22 13:32 Intake & Output 09/20/22 09/21/22 09/21/22 23:59 11:59 23:59 Intake Total 2200 / 3200 1420 / 1670 250 / 1670 Output Total 705 / 710 Balance 1495 / 2490 1415 / 1665 250 / 1665 Intake: IV 1000 / 2000 1000 / 1000 Oral 1200 / 1200 420 / 670 250 / 670 Output: Chest Tube Drainage 5 5 / 5 Urine 700 / 700 Other: Urine Color Yellow Urine Appearance Clear Clear Comment Patient states he went at aprox 0400. Voiding Methods Toilet [facility] All Active Problems (Updated 09/21/22 @ 14:30 by Nina Wadsworth MD) Hx of pneumothorax (Acute) Pneumothorax (Acute) Fracture of rib (Acute) Fracture, ribs (Acute) Pneumothorax (Acute) Left elbow pain (Acute) ? tendonitis Hyperlipidemia (Acute) History of bicuspid aortic valve (Acute) Epididymal cyst (Acute) Testicle pain (Acute) left side intermittent Transient confusion (Acute 06/01/16) Migraine equivalent; magnesium helping Mitral valve regurgitation (Acute) echo 07/05-mild regurgitation; bicuspid valve Benign prostatic hyperplasia (Acute 06/01/16) Medical History BPH (benign prostatic hyperplasia) Family history of colon cancer Paternal: aunt, grandmother, and grandfather Heart murmur H/O bicuspid aortic valve; H/O torn chordae Hematospermia Left inguinal hernia Migraine aura without headache (08/11/16) Palpitations extensive w/u; 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 MALIK CONTE Family History Mother Hyperlipidemia Neoplasm SKIN Sister Depression Sister Neoplasm BREAST Alcohol use disorder Grandfather Heart disease Stroke Grandfather Essential hypertension Heart disease Grandmother Neoplasm BREAST Maternal Aunt Neoplasm Maternal Aunt Neoplasm Social History Smoking/Tobacco Use Status: Never Second Hand Exposure: Yes Smoking risk assessment performed?: Yes Alcohol Intake: current Alcohol Intake frequency: a few times a week Alcohol type: beer Drug use: Never Substance use type: does not use Household members: spouse and children Housing: house Communication Needs: None Do you need help understanding health information?: Never Pets and animals: Yes Pets and animals: dog(s) Sexually active: Yes Do you think of yourself as: straight/heterosexual Current gender identity: male What is your relationship status?: How often do you talk on the phone with friends or family?: twice per week How often do you get together with friends or relatives?: twice per week How often do you attend zoroastrianism or episcopalian services?: 1-3 times per year Do you belong to any clubs or organized social groups?: yes Panel score (0-1 are the most socially isolated patients): 3 What type of physical activity do you participate in: walking, aerobic, bicycling and yoga Duration: 60-90 minutes/day Frequency: 5-6 times per week Bisi/Mandaeism: No preference Special bisi needs: No Seatbelt use: always Helmet use: Yes Helmet use: always 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
--- NOTE | 2022-09-21 14:31 | PDOC.CMDIS ---
Date of service: 09/21/22 Time of Service: 14:31 LACE Index Scoring Tool Questions: Length of Stay (in days): 2 Was the patient admitted via the E.D.?: Yes E.D. Visits: 1 Answers: Total Score: 6 Risk of Readmission: Low Risk Care Management Discharge Plan Reason for Hospitalization: pneumothorax Discharge Plan: John will be discharged home with no new services when medically cleared. He will follow up with surgery and his PCP and transport with family. Patient/Family Education Needs: Review of discharge instructions, limitations, activity, follow up plan, discuss Ask Me Three
--- NOTE | 2022-09-21 15:00 | DI.RAD_ITS ---
Exam(s) XR CHEST 2V PA LATERAL EXAM: XR CHEST 2V PA LATERAL CLINICAL HISTORY: chest tube removed TECHNIQUE: 2D digital imaging was performed of the chest. Two images were obtained. PA and lateral views were obtained. COMPARISON: CR XR CHEST 2V PA LATERAL from 09/21/2022 FINDINGS: There has been interval removal of the right chest tube. MEDIASTINUM: Normal. HEART: Normal. PULMONARY VASCULATURE: Normal. LUNGS: Persistent left basilar atelectasis. The right lung is clear. PLEURAL SPACE: There may be a very tiny apical left pneumothorax which is unchanged. No right pneumo thorax. Stable tiny bilateral pleural effusions, left greater than right. BONE:Within normal limits for the patient's age. Stable left rib fractures. OTHER FINDINGS:Normal. IMPRESSION: Interval removal of the chest tube. There may be a very tiny stable left apical pneumothorax. DATA REPOSITORY: RADIATION DOSE DELIVERED:
[2022-09-21] MEDS: Bisacodyl 10 MG SUPP PR (15:37)
== END 2022-09-21 16:39 | disposition home or self-care (01) ==
LOC: ER 18:21 → MS 19:28
PROVIDERS: Admitting Provider Surgery; Emergency Provider Emergency Medicine; PCP Nurse Practitioner Family; Visit Provider Surgery
DX: S27.0XXA Traumatic pneumothorax, initial encounter (principal); S22.42XA Multiple fractures of ribs, left side, initial encounter for closed fracture; W10.9XXA Fall (on) (from) unspecified stairs and steps, initial encounter; I34.0 Nonrheumatic mitral (valve) insufficiency; E78.5 Hyperlipidemia, unspecified; N40.0 Benign prostatic hyperplasia without lower urinary tract symptoms; Q23.1 Congenital insufficiency of aortic valve; Z79.899 Other long term (current) drug therapy
CPT/HCPCS: 32556; 36415; 80053; 86850; 86900; 86901; 96365; 96366; 96374; 96375; 96376; 99285; J1650; 71045; 71046; 85025; 85610; 85730; G0378; J0131; J1885; J2060; J2270; J2405; J3490

== ENCOUNTER 2022-09-19 22:45 | Outpatient (CLI) | payer BC, SELFPAY ==
--- NOTE | 2022-09-19 09:30 | DI.RAD_ITS ---
Exam(s) XR CHEST 2V PA LATERAL EXAM: XR CHEST 2V PA LATERAL CLINICAL HISTORY: Pneumo left lung past sat AM, DCd [place], J93.9 TECHNIQUE: 2D digital imaging was performed of the chest. Two images were obtained. PA and lateral views were obtained. COMPARISON: No exams were available for comparison FINDINGS: MEDIASTINUM: Normal. HEART: Normal. PULMONARY VASCULATURE: Normal. LUNGS: There is atelectasis seen in the left lower lobe. The right lung is clear. PLEURAL SPACE: There is a left pneumothorax occupying 1/3 of the left hemithorax. There is a small l eft pleural effusion. There is no right pleural effusion or pneumothorax. BONE:Within normal limits for the patient's age. There are fractures involving the lateral aspects o f left 5th through 7th ribs. OTHER FINDINGS:Normal. IMPRESSION: 1. Left pneumothorax occupying 1/3 of the left hemithorax. Small left pleural effusion. 2. Atelectasis involving the left lower lobe. 3. Fractures involving the lateral aspects of the left 5th through 7th ribs. 4. Findings were discussed with Kennedy Finn at 1:58 p.m. on 09/19/2022. DATA REPOSITORY: RADIATION DOSE DELIVERED:
== END 2022-09-19 23:05 ==
LOC: DI 22:46
PROVIDERS: PCP Nurse Practitioner Family; Visit Provider Nurse Practitioner Family
DX: J98.11 Atelectasis; S22.42XA Multiple fractures of ribs, left side, initial encounter for closed fracture; X58.XXXA Exposure to other specified factors, initial encounter
CPT/HCPCS: 71046

== ENCOUNTER 2022-09-28 00:39 | Outpatient (CLI) | payer BC, SELFPAY ==
--- NOTE | 2022-09-28 07:45 | DI.RAD_ITS ---
Exam(s) XR CHEST 2V PA LATERAL EXAM: XR CHEST 2V PA LATERAL CLINICAL HISTORY: follow up on PTX, HX PNEUMOTHORAX, FRACTURE RIBS, Z87.09, S22.49XA. TECHNIQUE: 2D digital imaging was performed. COMPARISON: CR XR CHEST 2V PA LATERAL from 09/19/2022 CR XR CHEST 2V PA LATERAL from 09/21/2022 CR XR CHEST 2V PA LATERAL from 09/21/2022 FINDINGS: 2 views: Heart size is normal. The mediastinum is not widened. Both lungs are presently clear. No infiltrates on either side and size of the left pleural effusion has decreased.. No residual pneumothorax on the left side. IMPRESSION: Significant improvement as described above. No remaining infiltrate nor pneumothorax.. Small amount of remaining left pleural fluid, also decreased. DATA REPOSITORY: RADIATION DOSE DELIVERED:
== END 2022-09-28 00:59 ==
LOC: DI 00:39
PROVIDERS: PCP Nurse Practitioner Family; Visit Provider Surgery
DX: S22.42XD Multiple fractures of ribs, left side, subsequent encounter for fracture with routine healing (principal); Z87.09 Personal history of other diseases of the respiratory system
CPT/HCPCS: 71046

== ENCOUNTER → 2022-10-10 02:17 | Outpatient (CLI) | payer BC, SELFPAY ==
--- NOTE | 2022-10-10 08:15 | DI.MRI_ITS ---
Exam(s) MR CERVICAL SPINE WO EXAM: MR CERVICAL SPINE WO CLINICAL HISTORY: cold sensation of hands,numbness,h/o trauma,r20.0,r20.2,z87.828 TECHNIQUE: Multiplanar multisequence MRI of the cervical spine was performed without intravenous con trast. COMPARISON: No exams were available for comparison FINDINGS: CERVICOMEDULLARY JUNCTION: Intact with no evidence of cerebellar tonsillar ectopia. No obvious abnor mality of the odontoid process. No evidence of Chiari 1 malformation. CERVICAL SPINAL CORD: There is no abnormal signal in the cervical spinal cord and no evidence of foca l cord atrophy nor focal cord swelling. OSSEOUS:There are no cervical fractures evident. No significant osseous lesions in the cervical vert ebrae. INDIVIDUAL LEVELS: C2-3: Unremarkable. C3-4: There is small left-sided disc-Luschka joint complex at this level. There is also significant l eft-sided facet arthropathy. There is mild left-sided foraminal stenosis. Milder right-sided facet a rthropathy. No foraminal stenosis on the right side. No central canal stenosis. C4-5: Mild disc space narrowing. No disc herniation. Right sided Luschka joint osteophytes. Modera te right-sided foraminal stenosis. Moderate degenerative change in right facet joint at this level. Lesser amount of degenerative change in the left facet joint and no foraminal stenosis on the left s jackelyn at this level. Central canal dimensions are lower normal. C5-6: This level exhibits chronic disc space narrowing. Mild central spinal canal stenosis with AP c anal measurement 10 mm. There is effacement of the anterior aspect of the thecal sac. No abnormal s ignal in the spinal cord at this level. There is no prominent disc herniation but there are left-juno ed Luschka joint osteophytes with mild left-sided foraminal stenosis. Mild degenerative changes in t he left facet joint. Right facet joint unremarkable. Minimal right-sided foraminal stenosis. C6-7: Chronic disc space narrowing, similar to C5-6. Central canal dimensions are lower normal with AP measurement 12 mm. Small left-sided Luschka joint osteophyte. Minimal foraminal stenosis.. Left facet joint unremarkable. Right facet joint unremarkable and there is also no significant right-juno ed foraminal stenosis at this level. C7-T1: No disc herniation nor central canal stenosis. Mild facet arthropathy.No foraminal stenosis. IMPRESSION: 1. Chronic multilevel findings as described individually above. There is mild multilevel foraminal s tenosis due to small Luschka joint osteophytes. There are no prominent disc herniations. 2. Mild central canal stenosis is noted at C5-6 level. 3. Multilevel mild-moderate facet arthropathy. DATA REPOSITORY:
== END ==
PROVIDERS: PCP Nurse Practitioner Family; Visit Provider Surgery
DX: R20.0 Anesthesia of skin (principal); Z87.828 Personal history of other (healed) physical injury and trauma; M47.13 Other spondylosis with myelopathy, cervicothoracic region; M48.062 Spinal stenosis, lumbar region with neurogenic claudication
CPT/HCPCS: 72141

== ENCOUNTER 2023-03-02 15:44 | Outpatient (REF) | payer BC, SELFPAY | END 2023-03-02 15:45 | disposition home or self-care (01) | LOC: LBN 15:44 | PROVIDERS: PCP Nurse Practitioner Family; Visit Provider Nurse Practitioner Family | DX: J02.9 Acute pharyngitis, unspecified (principal) | CPT/HCPCS: 87070 ==

== ENCOUNTER 2023-05-04 18:02 | Outpatient (CLI) | payer BC, SELFPAY ==
[2023-05-04 17:25] LABS: TSH (W/Ref FT4) 1.57 uIU/mL (0.36-3.74)
== END 2023-05-04 18:03 | disposition home or self-care (01) ==
LOC: LBO 18:02
PROVIDERS: PCP Nurse Practitioner Family; Visit Provider Nurse Practitioner Family
DX: Z00.00 Encounter for general adult medical examination without abnormal findings (principal); E78.5 Hyperlipidemia, unspecified; N40.0 Benign prostatic hyperplasia without lower urinary tract symptoms
CPT/HCPCS: 36415; 84443

== ENCOUNTER 2023-10-06 06:19 | Day surgery (SDC) | payer BC, SELFPAY ==
[2023-10-06 06:37] VITALS: BP 120/76; PULSE 70; RESP 17; TEMP 36.6; O2SAT 98
[2023-10-06] MEDS: Lactated Ringers 1,000 ML 30 ML IV (06:58)
--- NOTE | 2023-10-06 07:12 | W.PM.DSUDISC ---
Date of service: 10/06/23 Time of Service: 08:00 Discharge Plan Disposition Patient Disposition: Home Discharge Details Attending Provider: Hima Soria Primary Care Provider: Mayela Hernandez Home Meds and New Rx's Prescriptions: Continued aspirin [Adult Aspirin Regimen] 81 mg tablet,delayed release (DR/EC) 81 mg PO DAILY cholecalciferol (vitamin D3) 50 mcg (2,000 unit) capsule 50 mcg PO DAILY clotrimazole 1 % cream 1 applic topical BID Qty: 45 0RF Rx Instructions: Apply to affected areas twice a dayfor 2-4wks acetaminophen [Tylenol] 325 mg capsule 325 mg PO ONCE PRN hydrocortisone 2.5 % cream 1 applic topical BID PRN (Reason: skin irritation) Qty: 30 2RF Rx Instructions: Apply to left abd and back twice daily as needed magnesium oxide 400 mg (241.3 mg magnesium) tablet 250 mg PO DAILY tamsulosin [Flomax] 0.4 mg capsule 0.8 mg PO DAILY Qty: 180 3RF Rx Instructions: note dosage increase simvastatin 20 mg tablet 20 mg PO HS Qty: 90 3RF Discharge Instructions Additional Instructions: Surgery: Left palm removal foreign body (splinter) Activity: Protect hand for a few weeks. Gently increase finger motion and hand gripping to prevent stiffness. Recommend elevation to minimize swelling and discomfort. Prescriptions: None Resume home medicines, use [id number] Tylenol (acetaminophen) as needed for mild pain and/or naproxen (Aleve) as needed for moderate to severe pain and swelling. Dressings: Leave dressing in place for 3 days. Loosen/adjust Junito bandage as needed for comfort. May then remove and leave open to air or cover incision with Band-Aid. May get wet after 5 days. Follow-up: 10-[address] Soria Please call the office during business hours with any questions or concerns. Discharge Orders Discharge Orders: Discharge Order (Routine); Ordered 10/06/23 Ordered By: Hima Soria DS: Diagnosis Discharge Diagnosis (1) Foreign body of hand, left: Status: Acute
--- NOTE | 2023-10-06 07:14 | W.PM.OP ---
Date of service: 10/06/23 Time of Service: 07:30 Operative Note Operative Note DATE OF PROCEDURE: 10/06/23 PRE-OP DIAGNOSIS: Left palm foreign body/splinter PROCEDURE: Left palm removal foreign body/splinter, CPT#49314 SURGEON: Hima Soria TUBE TESTER: None None ANESTHESIA TYPE: Local By Surgeon Refer to Anesthesia Record ESTIMATED BLOOD LOSS: 1 TOURNIQUET TIME: 0 COMPLICATIONS: None Patient was transported to: same day Patient's condition: stable Indications: Please see complete medical record for details. Procedure Description: In the operating room, the patient was positioned supine on the stretcher. All bony prominences were padded. Preoperative antibiotics were omitted. The correct patient, procedure, and side of the procedure were all verified prior to beginning. Local anesthesia was induced about the site with 10cc of 1% lidocaine containing epinephrine buffered with 1 cc of sodium bicarbonate. The Left hand was prepped and draped in the usual sterile fashion. Proper analgesia was confirmed. A horizontal incision was made couple centimeters in the distal palmar crease just proximal to the palpable splinter area by the ring and small finger side. Subcutaneous tissue was spread carefully using mosquito snaps revealing a firm area, which spreading and delivered from the wound with a rongeur revealing a somewhat wide with the larger side deeper wood splinter seemingly in entirety. Meticulous inspection palpation and spreading about the borders of the wound were then done without any additional foreign body wood or splinter present. Rongeur was used to remove firm scar tissue subcutaneous tissue and some fat about the margins to ensure all foreign body was removed. Nothing firm could be seen or felt in the area. Hemostasis was appropriate. Ring and small finger range of motion was full. The small incision was irrigated and then dried. Hemostasis was appropriate. The incision was closed using 3-0 nylon in a horizontal mattress fashion. Xeroform was applied followed by gauze and the hand was gently compressed with an Junito bandage. The patient tolerated local anesthesia without complication and was transferred out of the operating room in a stable condition.
[2023-10-06] MEDS: ceFAZolin 2 GM/50 ML BAG IVPB (07:29)
[2023-10-06] MEDS: Lidocaine 1% Multi-Dose W/EPI 1/100,000 50 ML VIAL (07:45)
[2023-10-06] MEDS: Sodium Bicarbonate 50 MEQ/50 ML VIAL (07:46)
[2023-10-06 08:08] VITALS: BP 116/58; PULSE 60; RESP 16; TEMP 36.6; O2SAT 100
== END 2023-10-06 08:35 | disposition home or self-care (01) ==
PROVIDERS: PCP Nurse Practitioner Family; Visit Provider Student in an Organized Health Care Education/Training Program
PROC: (CPT 10121; principal; 2023-10-06 07:30)
DX: S60.552A Superficial foreign body of left hand, initial encounter (principal); W45.8XXA Other foreign body or object entering through skin, initial encounter
CPT/HCPCS: 10121; J0690; J2004

== ENCOUNTER 2024-04-04 13:42 | Outpatient (CLI) | payer BC, SELFPAY ==
--- NOTE | 2024-04-04 12:00 | DI.RAD_ITS ---
Exam(s) XR RIBS LT W PA LAT CHEST CLINICAL HISTORY Sports injury, ball to chest, left side pain S29.9XXA INJURY THORAX, TRAUMA. COMPARISON: CR XR CHEST 2V PA LATERAL from 09/28/2022 TECHNIQUE:: PA and lateral views of the chest and four views of the left ribs were performed. FINDINGS: LUNGS: Clear. No pleural abnormality seen. HEART: Normal. MEDIASTINUM: Normal. BONES: There are old healed left 5th through 7th rib fractures. No acute displaced rib fracture is s een. No compression fractures are seen in the thoracic spine. No bony destructive lesion is seen. There are degenerative disc changes in the lower thoracic spine IMPRESSION: Old left rib fractures. No acute fractures. No acute pulmonary findings.
== END 2024-04-04 14:02 ==
LOC: DI 13:43
PROVIDERS: PCP Nurse Practitioner Family; Visit Provider Nurse Practitioner Family
DX: S29.9XXA Unspecified injury of thorax, initial encounter (principal); X58.XXXA Exposure to other specified factors, initial encounter
CPT/HCPCS: 71046; 71100

== ENCOUNTER 2024-04-04 14:18 | Outpatient (CLI) | payer BC, SELFPAY ==
[2024-04-04 14:05] LABS: Hemoglobin A1C 5.3 % (<5.7)
[2024-04-04 14:47] LABS: Calculated LDL 63 mg/dL (<100); Cholesterol 148 mg/dL (<200); HDL Cholesterol 59 mg/dL (40-60); Triglyceride 133 mg/dL (<150)
[2024-04-04 22:50] LABS: PSA, Screening 1.1 ng/mL (<=3.5)
== END 2024-04-04 14:19 | disposition home or self-care (01) ==
LOC: LBO 14:20
PROVIDERS: PCP Nurse Practitioner Family; Visit Provider Nurse Practitioner Family
DX: Z13.220 Encounter for screening for lipoid disorders (principal); Z13.1 Encounter for screening for diabetes mellitus; Z12.5 Encounter for screening for malignant neoplasm of prostate
CPT/HCPCS: 36415; 80061; 84153; 83036

== ENCOUNTER 2024-07-15 08:09 | Outpatient (CLI) | payer BC, SELFPAY ==
--- NOTE | 2024-07-15 08:00 | RT.EKG_ITS ---
APPROVED REPORT Exam: Resting ECG Reason for Exam: palpitations Patient Location: O HR:72 bpm ECG Measurements Heart Rate 72 AXIS MA 155 P 66 QRSd 101 QRS 72 QT 371 T -26 QTc 406 Conclusion Sinus rhythm...normal P axis, V-rate 50- 99 Nonspecific T abnormalities, inferior leads...T <-0.10mV, II III aVF Borderline ST elevation, anterior leads...ST >0.15mV in V1-V4 Baseline wander in lead(s) V1,V2
== END 2024-07-15 08:10 | disposition home or self-care (01) ==
LOC: DI.CARD 08:10
PROVIDERS: PCP Nurse Practitioner Family; Visit Provider Registered Nurse
DX: R00.2 Palpitations (principal); Z87.74 Personal history of (corrected) congenital malformations of heart and circulatory system
CPT/HCPCS: 93010

== ENCOUNTER → 2025-02-05 14:07 | Outpatient (CLI) | payer BC, SELFPAY ==
--- NOTE | 2025-02-05 13:00 | DI.RAD_ITS ---
Exam(s) XR THUMB LT EXAM: XR THUMB LT CLINICAL HISTORY: eval fx or bone involvement, injury left thumb, S69.92XA. TECHNIQUE: 2D digital imaging was performed. COMPARISON: No exams were available for comparison FINDINGS: 3 views There is soft tissue injury over the distal aspect of the thumb. There is no radiopaque foreign body. There is a small defect at the dorsal lateral aspect of the tuft of the distal phalanx. This, however, does not have the appearance of a fracture. Remainder of the thumb appears unremarkable. IMPRESSION: Small defect in the tuft of the distal phalanx noted. However, this is doubtful for fracture, most probably representing a small cyst at this level. DATA REPOSITORY: RADIATION DOSE DELIVERED:
--- NOTE | 2025-02-05 13:15 | DI.RAD_ITS ---
Exam(s) XR KNEE RT 3V AP,LAT,BRIAN EXAM: XR KNEE RT 3V AP,LAT,BRIAN CLINICAL HISTORY: worsening right knee pain, M25.561. TECHNIQUE: 2D digital imaging was performed. Three views. COMPARISON: No exams were available for comparison FINDINGS: BONES: No acute fracture is present. No bony destructive lesion is seen. JOINTS: There is moderate narrowing of the medial femoral tibial joint space. There is mild widening of the lateral femoral tibial joint space creating mild varus angulation. There are no significant spurring at the femoral tibial joints. There is minimal spurring at the patellofemoral joint. No joint effusion is seen. SOFT TISSUE: Normal. IMPRESSION: Moderate joint space narrowing of the medial femoral tibial joint. DATA REPOSITORY: RADIATION DOSE DELIVERED:
== END ==
LOC: DI 14:07
PROVIDERS: PCP Nurse Practitioner Family; Visit Provider Nurse Practitioner Family
DX: S69.92XA Unspecified injury of left wrist, hand and finger(s), initial encounter (principal); X58.XXXA Exposure to other specified factors, initial encounter; M17.11 Unilateral primary osteoarthritis, right knee
CPT/HCPCS: 73562; 73140